=== PATIENT | male | born 1940 | race Caucasian/White ===

== ENCOUNTER 2018-03-16 22:53 | Observation (INO) | payer MEDICARE, OTHER ==
[2018-03-16 22:55] VITALS: BMI 29.8
[2018-03-16] MEDS ORDERED: DiphenhydrAMINE 50 mg/ml Inj IVP STA (23:51)
--- NOTE | 2018-03-17 00:04 | ED PDOC ---
Arrival/HPI <Gustavo Sears - Last Filed: 03/17/18 01:36> - General Historian: Patient <Bertram Brown - Last Filed: 03/17/18 02:31> - General Chief Complaint: Weakness/Neurological Deficit Time Seen by Provider: 03/16/18 23:24 - History of Present Illness Narrative History of Present Illness (Text): Patient is a 77 year old male with a past medical history of CAD s/p 5 stents ( 2 recent stents last week), hypertension, diabetes, and BPH who presents to the Emergency department for evaluation and treatment of a syncopal episode. As per family at bedside the patient experienced LOC while in the bathroom. Family was able to prevent trauma to the head. It is important to note patient did not consume regular PO intake today as his blood glucose was reportedly elevated. Also admits to diffuse pruritic rash. Denies fever, chills, chest pain, shortness of breath, abdominal pain, nausea, vomitting, diarrhea, constipation, and urinary symptoms. 03/17/18 00:09 (Bertram Brown) Past Medical History - Provider Review Nursing Documentation Reviewed: Yes - Travel History Have you recently traveled outside [place] w/in the past 3 mons?: No - Infectious Disease Hx of Infectious Diseases: None - Tetanus Immunization Tetanus Immunization: Unknown - Cardiac Hx Hypertension: Yes - Pulmonary Hx Respiratory Disorders: No - Neurological Hx Neurological Disorder: No - HEENT Hx HEENT Disorder: Yes Hx Cataracts: Yes (leanna sx) - Renal Hx Kidney Stones: Yes - Endocrine/Metabolic Hx Diabetes Mellitus Type 2: Yes - Hematological/Oncological Hx Blood Disorders: No - Integumentary Hx Dermatological Disorder: No - Musculoskeletal/Rheumatological Hx Arthritis: Yes - Gastrointestinal Hx Gastroesophageal Reflux: Yes - Genitourinary/Gynecological Hx Prostate Problems: Yes - Psychiatric Hx Depression: No Hx Emotional Abuse: No Hx Physical Abuse: No Hx Substance Use: No - Surgical History Hx Cardiac Catheterization: Yes Hx Coronary Stent: Yes (x3) - Anesthesia Hx Anesthesia Reactions: No - Suicidal Assessment Feels Threatened In Home Enviroment: No <Bertram Brown - Last Filed: 03/17/18 02:31> Family/Social History - Physician Review Nursing Documentation Reviewed: Yes Family/Social History: Unknown Family HX Smoking Status: Former Smoker Hx Alcohol Use: No Hx Substance Use: No Hx Substance Use Treatment: No <Bertram Brown - Last Filed: 03/17/18 02:31> Allergies/Home Meds <Gustavo Sears - Last Filed: 03/17/18 01:36> <Bertram Brown - Last Filed: 03/17/18 02:31> Allergies/Adverse Reactions: Allergies No Known Allergies Allergy (Verified 02/21/16 12:16) Home Medications: Home Meds Medication Instructions Recorded Confirmed Metoprolol Succinate 25 mg PO DAILY 01/06/14 03/16/18 Gabapentin [Neurontin] 300 mg PO BID 02/13/16 03/16/18 Mirtazapine [Remeron] 15 mg PO HS 02/13/16 03/16/18 Linaclotide [Linzess] 145 mcg PO DAILY 09/20/16 03/16/18 Losartan Potassium [Losartan 25 mg PO DAILY 03/16/18 03/16/18 Potassium] MetFORMIN ER [Glucophage XR] 750 mg PO DAILY 03/16/18 03/16/18 Saxagliptin HCl [Onglyza] 5 mg PO DAILY 03/16/18 03/16/18 Silodosin [Rapaflo] 8 mg PO DAILY 03/16/18 03/16/18 Review of Systems - Physician Review All systems were reviewed & negative as marked: Yes - Review of Systems Constitutional: Normal Eyes: Normal ENT: Normal Respiratory: Normal Cardiovascular: Normal Gastrointestinal: Normal Genitourinary Male: Normal Musculoskeletal: Normal Skin: Rash Neurological: Other (LOC) Endocrine: Normal Hemo/Lymphatic: Normal Psychiatric: Normal <Bertram Brown - Last Filed: 03/17/18 02:31> Physical Exam Vital Signs Reviewed: Yes Temperature: Afebrile Blood Pressure: Normal Pulse: Regular Respiratory Rate: Normal Appearance: Positive for: Well-Appearing, Non-Toxic, Comfortable Pain Distress: None Mental Status: Positive for: Alert and Oriented X 3 - Systems Exam Head: Present: Atraumatic, Normocephalic Pupils: Present: PERRL Extroacular Muscles: Present: EOMI Conjunctiva: Present: Normal Mouth: Present: Moist Mucous Membranes Nose (External): Present: Atraumatic Respiratory/Chest: Present: Clear to Auscultation, Good Air Exchange. No: Respiratory Distress, Accessory Muscle Use Cardiovascular: Present: Regular Rate and Rhythm, Normal S1, S2 Abdomen: Present: Normal Bowel Sounds. No: Tenderness, Distention, Peritoneal Signs, Rebound, Guarding Upper Extremity: Present: Erythema Lower Extremity: Present: Erythema Neurological: Present: GCS=15, CN II-XII Intact, Speech Normal, Motor Func Grossly Intact, Normal Sensory Function Skin: Present: Warm, Dry, Rashes, Erythematous. No: Normal Color, Diaphoretic Psychiatric: Present: Alert, Oriented x 3, Normal Insight, Normal Concentration , Normal Affect, Normal Mood <Bertram Brown - Last Filed: 03/17/18 02:31> Vital Signs Temp Pulse Resp BP Pulse Ox 03/17/18 01:39 98 F 81 18 139/76 95 03/16/18 23:13 97.9 F 84 18 131/80 96 Medical Decision Making <Gustavo Sears - Last Filed: 03/17/18 01:36> - Lab Interpretations I have reviewed the lab results: Yes - EKG Interpretation Interpreted by ED Physician: Yes Type: 12 lead EKG <Bertram Brown - Last Filed: 03/17/18 02:31> ED Course and Treatment: 03/17/18 01:35 Dima Holguin is a 77 year old male who presents to the emergency department for further evaluation s/p a syncopal episode. In agreement with resident note which contains more details about the patient. Patient was seen and evaluated with resident. Came up with plan and treatment together. (Gustavo Sears) Patient is a 77 year old male with a past medical history of CAD s/p 5 stents ( 2 recent stents last week), hypertension, diabetes, and BPH who presents to the Emergency department for evaluation and treatment of a syncopal episode. Syncope Rash Hx of CAD HX of hypertension Hx of diabetes HX of BPH - CBC, CMP - EKG NSR HR 87 bpm,, Qtc 433 - cardiac iso - benadryl and solumedrol - cxr - head without contrast 03/17/18 00:13 (Bertram Brown) - Lab Interpretations Lab Results: 03/16/18 23:53 03/16/18 23:53 Lab Results 03/17/18 01:40: Urine Color Light yellow, Urine Appearance Clear, Urine pH 6.0, Ur Specific [place] 1.015, Urine Protein Negative, Urine Glucose (UA) Negative, Urine Ketones Negative, Urine Blood Negative, Urine Nitrate Negative, Urine Bilirubin Negative, Urine Urobilinogen 0.2, Ur Leukocyte Esterase Negative 03/16/18 23:53: Sodium 129 L, Potassium 4.2, Chloride 100, Carbon Dioxide 19 L, Anion Gap 15, BUN 17, Creatinine 1.2, Est GFR ( Amer) > 60, Est GFR (Non- Af Amer) 58, Random Glucose 106, Calcium 9.2, Magnesium 1.3 L, Total Bilirubin 1.3, AST 26, ALT 28, Alkaline Phosphatase 67, Lactate Dehydrogenase 381, Total Creatine Kinase 35, Troponin I < 0.01 D, Total Protein 6.7, Albumin 3.7, Globulin 3.0, Albumin/Globulin Ratio 1.2 03/16/18 23:53: PT 13.1 H, INR 1.15 H, APTT 32.7 03/16/18 23:53: WBC 6.6 D, RBC 3.45 L, Hgb 10.5 L, Hct 30.6 L, MCV 88.7, MCH 30.4, MCHC 34.3, RDW 16.5 H, Plt Count 126, Gran % 78.3 H, Lymph % (Auto) 15.7 L , [place] % (Auto) 5.4, Eos % (Auto) 0.6 L, Baso % (Auto) 0.0, Gran # 5.19, Lymph # (Auto) 1.0 L, [place] # (Auto) 0.4, Eos # (Auto) 0.0, Baso # (Auto) 0.00 - RAD Interpretation Radiology Orders: 03/16/18 23:50 CHEST PORTABLE [RAD] Stat 03/16/18 23:51 HEAD W/O CONTRAST [CT] Stat - EKG Interpretation EKG Interpretation (Text): - EKG NSR HR 87 bpm,, Qtc 433 (Bertram Brown) - Medication Orders Current Medication Orders: Discontinued Medications Diphenhydramine HCl (Benadryl) 50 mg IVP STAT STA Stop: 03/16/18 23:52 Last Admin: 03/16/18 23:59 Dose: 50 mg IVP Administration Document 03/16/18 23:59 OLIVERIO (Rec: 03/16/18 23:59 OLIVERIO [id number]) Charges for Administration # of IVP Administrations 1 Magnesium 2 gm/50 ml NS (Magnesium Sulfate 2 Gm/50 Ml Ns) 2 gm in 50 mls @ 102 mls/hr IVPB ONCE ONE Stop: 03/17/18 02:21 Last Admin: 03/17/18 02:18 Dose: 102 mls/hr eMAR Start Stop Document 03/17/18 02:18 LA (Rec: 03/17/18 02:19 LA [id number]) Intravenous Solution Start Date 03/17/18 Start Time 02:18 End Date 03/17/18 End time 02:48 Total Infusion Time 30 Methylprednisolone (Solu-Medrol) 125 mg IVP STAT STA Stop: 03/16/18 23:52 Last Admin: 03/16/18 23:59 Dose: 125 mg IVP Administration Document 03/16/18 23:59 LA (Rec: 03/16/18 23:59 LA [id number]) Charges for Administration # of IVP Administrations 1 - Scribe Statement The provider has reviewed the documentation as recorded by the Scribe <Gustavo Sears - Last Filed: 03/17/18 01:36> <Bertram Brown - Last Filed: 03/17/18 02:31> - Scribe Statement Jeanie Law Provider Scribe Attestation: All medical record entries made by the Scribe were at my direction and personally dictated by me. I have reviewed the chart and agree that the record accurately reflects my personal performance of the history, physical exam, medical decision making, and the department course for this patient. I have also personally directed, reviewed, and agree with the discharge instructions and disposition. (Gustavo Sears) Disposition/Present on Arrival <Gustavo Sears - Last Filed: 03/17/18 01:36> - Present on Arrival History of DVT/PE: No History of Uncontrolled Diabetes: No Urinary Catheter: No History of Decub. Ulcer: No History Surgical Site Infection Following: None <Bertram Brown - Last Filed: 03/17/18 02:31> - Disposition Forms: [employer] (German)
[2018-03-17 00:13] LABS: EOS % 0.6 % (1.5-5.0); GRAN # 5.19 (1.4-6.5); GRAN % 78.3 % (50.0-68.0); HEMOGLOBIN 10.5 g/dL (14.0-18.0); LYMPH % 15.7 % (22.0-35.0); MEAN CELL VOLUME 88.7 fl (80.0-105.0); MEAN CORPUSCULAR HEMOGLOBIN 30.4 pg (25.0-35.0); MEAN CORPUSCULAR HGB CONC 34.3 g/dl (31.0-37.0); MONO # 0.4 (0.1-0.6); MONO % 5.4 % (1.0-6.0); PLATELET COUNT 126 10^3/uL (120.0-450.0); RBC 3.45 10^6/uL (3.5-6.1); RED CELL DISTRIBUTION WIDTH 16.5 % (11.5-14.5); WHITE BLOOD COUNT 6.6 10^3/ul (4.5-11.0)
[2018-03-17 00:14] LABS: ALB/GLOB RATIO 1.2 (1.1-1.8); ALBUMIN 3.7 g/dL (3.0-4.8); ALT/SGPT 28 U/L (7-56); AST/SGOT 26 U/L (17-59); BLOOD UREA NITROGEN 17 mg/dL (7-21); CALCIUM 9.2 mg/dL (8.4-10.5); GFR AFRICAN-AMERICAN > 60; GFR NON-AFRICAN AMERICAN 58
[2018-03-17 00:23] LABS: TROPONIN I < 0.01 ng/mL
[2018-03-17 00:25] LABS: INR 1.15 (0.93-1.08); PARTIAL THROMBOPLASTIN TIME 32.7 Seconds (25.1-36.5); PROTHROMBIN TIME 13.1 SECONDS (9.4-12.5)
[2018-03-17] MEDS ORDERED: Magnesium 2 gm/50 ml NS 2 GM/50 ML BAG IVPB ONE (01:52)
[2018-03-17 02:05] LABS: URINE BILIRUBIN NEGATIVE (NEGATIVE); URINE BLOOD NEGATIVE (NEGATIVE); URINE GLUCOSE (UA) NEGATIVE (NEGATIVE); URINE LEUKOCYTE ESTERASE NEGATIVE Leu/uL (NEGATIVE); URINE PROTEIN NEGATIVE mg/dL (<30 mg/dL); URINE UROBILINOGEN 0.2 E.U./dL (<1 E.U./dL)
--- NOTE | 2018-03-17 02:07 | CT ---
EXAM: CT Head Without Intravenous Contrast CLINICAL HISTORY: 77 years old, male; Signs and symptoms; Syncope and collapse TECHNIQUE: Axial computed tomography images of the head/brain without intravenous contrast. All CT scans at this facility use one or more dose reduction techniques, viz.: automated exposure control; ma/kV adjustment per patient size (including targeted exams where dose is matched to indication; i.e. head); or iterative reconstruction technique. Coronal and sagittal reformatted images were created and reviewed. COMPARISON: MR - BRAIN WITHOUT CONTRAST 2016-11-02 13:50 FINDINGS: Brain: Moderate atrophy. No intracranial hemorrhage. No mass. Several scattered foci of decreased attenuation within periventricular/subcortical white matter. No definite edema. Ventricles: No hydrocephalus. Bones/joints: No acute fracture. Soft tissues: Unremarkable. Vasculature: Mild atherosclerotic disease of intracranial arteries. Sinuses: Scattered minimal mucosal thickening. Mastoid air cells: No mastoid effusion. Orbits: Unremarkable as visualized. IMPRESSION: 1. Nonspecific white matter changes. Acute infarction may be CT occult within first 24 hours. If a focal deficit persists, consider followup CT or MRI for further evaluation. 2. Incidental/non-acute findings are described above.
[2018-03-17 02:14] LABS: URINE APPEARANCE CLEAR (CLEAR); URINE COLOR LIGHT YELLOW (YELLOW)
--- NOTE | 2018-03-17 02:28 | CP.PCM.HP ---
Addendum entered and electronically signed by Bertram Brown DO 03/17/18 04:50: Addition to Subjective: 12 points ROS negative except as indicated in HPI Addition to Assessment and Plan: - ECHO - troponin first set less than 0.01; x 3 q6h - TSH Addendum entered and electronically signed by Bertram Brown DO 03/17/18 03:22: Correction in HPI: Stents were placed in 2016 Original Note: <Bertram Brown - Last Filed: 03/17/18 02:41> History of Present Illness - History of Present Illness History of Present Illness: Subjective: CC: Fainting HPI: Patient is a 77 year old male with a past medical history of CAD s/p 5 stents ( 2 recent stents last week), hypertension, diabetes, IBS, and BPH who presents to the Emergency department for evaluation and treatment of a syncopal episode. As per family, who is at bedside, the patient experienced LOC while in the bathroom. Family was able to prevent trauma to the head. It is important to note patient did not consume regular PO intake today as his blood glucose was reportedly elevated in the morning. Also admits to diffuse pruritic rash which began yesterday with no specific provoking event. Denies headache, dizziness, fever, chills, chest pain, palpitations, shortness of breath, abdominal pain, nausea, vomiting, diarrhea, constipation, and urinary symptoms. PMH: CAD s/p stents, hypertension, diabetes, BPH, IBS PSHx: bialateral inguinal hernia repair Social History: Denies ETOH use, quit smoking 7 years ago; denies illicit drug use Family Hx: noncontributory PMD: Dr. Diaz Cartridge Belt Puncher: Dr. Minaya Physical Examination: - Constitutional Appears: Well, Non-toxic, No Acute Distress - Head Exam Head Exam: ATRAUMATIC, NORMAL INSPECTION - Eye Exam Eye Exam: EOMI, Normal appearance - ENT Exam ENT Exam: Mucous Membranes Moist - Respiratory Exam Respiratory Exam: Clear to Auscultation Bilateral, NORMAL BREATHING PATTERN. absent: Accessory Muscle Use - Cardiovascular Exam Cardiovascular Exam: REGULAR RHYTHM, +S1, +S2 - GI/Abdominal Exam GI & Abdominal Exam: Normal Bowel Sounds. absent: Tenderness - Extremities Exam Extremities exam: Negative for: normal inspection - Neurological Exam Neurological exam: Alert, CN II-XII Intact, Oriented x3 - Psychiatric Exam Psychiatric exam: Normal Affect, Normal Mood - Skin Skin Exam: Intact, Rash, Warm Assessment and Plan: Patient is a 77 year old male with a past medical history of CAD s/p 5 stents ( 2 recent stents last week), hypertension, diabetes, and BPH who presents to the Emergency department for evaluation and treatment of a syncopal episode. Syncope - CT head- Moderate atrophy. No intracranial hemorrhage. No mass. Several scattered foci of decreased attenuation within periventricular/subcortical white matter - Chest X-ray- no active disease - EKG NSR HR 87 bpm,, Qtc 433 - neurology consulted- appreciate recommendations - cardiology consulted- appreciate recommendations - high risk fall precautions Rash - patient was given Benadryl and solumedrol in Emergency department - benadryl 25mg q6 prn pruritis - prednisone 20 mg daily Hyponatremia - NA 129- at baseline - no acute need for NS IVF Hypomagnesemia - repleted - mag level ordered for AM Hx of CAD - continue home aspirin, statin, metoprolol - lipid profile ordered and pending HX of Hypertension - blood pressures reviewed, trended, and appreciated- within normal limts - continue home losartan Hx of diabetes - heart healthy diet- carb consistent - ACHS blood glucose checks - Insulin sliding scale - hold home gliptin and metformin - A1c ordered and pending HX of BPH - continue home rapaflo Patient case discussed with and plan approved by attending physician, Dr. Echeverria. Present on Admission - Present on Admission Any Indicators Present on Admission: No Past Patient History - Infectious Disease Hx of Infectious Diseases: None - Tetanus Immunizations Tetanus Immunization: Unknown - Past Social History Smoking Status: Former Smoker - CARDIAC Hx Hypertension: Yes - PULMONARY Hx Respiratory Disorders: No - NEUROLOGICAL Hx Neurological Disorder: No - HEENT Hx HEENT Problems: Yes Hx Cataracts: Yes (leanna sx) - RENAL Hx Kidney Stones: Yes - ENDOCRINE/METABOLIC Hx Diabetes Mellitus Type 2: Yes - HEMATOLOGICAL/ONCOLOGICAL Hx Blood Disorders: No - INTEGUMENTARY Hx Dermatological Problems: No - MUSCULOSKELETAL/RHEUMATOLOGICAL Hx Arthritis: Yes - GASTROINTESTINAL Hx Gastroesophageal Reflux: Yes - GENITOURINARY/GYNECOLOGICAL Hx Prostate Problems: Yes - PSYCHIATRIC Hx Depression: No Hx Emotional Abuse: No Hx Physical Abuse: No Hx Substance Use: No - SURGICAL HISTORY Hx Cardiac Catheterization: Yes Hx Coronary Stent: Yes (x3) - ANESTHESIA Hx Anesthesia Reactions: No Meds Allergies/Adverse Reactions: Allergies Allergy/AdvReac Type Severity Reaction Status Date / Time No Known Allergies Allergy Verified 02/21/16 12:16 Physical Exam - Constitutional Appears: Well, Non-toxic, No Acute Distress - Head Exam Head Exam: ATRAUMATIC, NORMAL INSPECTION - Eye Exam Eye Exam: EOMI, Normal appearance - ENT Exam ENT Exam: Mucous Membranes Moist - Respiratory Exam Respiratory Exam: Clear to Auscultation Bilateral, NORMAL BREATHING PATTERN. absent: Accessory Muscle Use - Cardiovascular Exam Cardiovascular Exam: REGULAR RHYTHM, +S1, +S2 - GI/Abdominal Exam GI & Abdominal Exam: Normal Bowel Sounds. absent: Tenderness - Extremities Exam Extremities exam: Negative for: normal inspection - Neurological Exam Neurological exam: Alert, CN II-XII Intact, Oriented x3 - Psychiatric Exam Psychiatric exam: Normal Affect, Normal Mood - Skin Skin Exam: Intact, Rash, Warm Results - Vital Signs Recent Vital Signs: Last Vital Signs Temp 98 F 03/17/18 01:39 Pulse 81 03/17/18 01:39 Resp 18 03/17/18 01:39 BP 139/76 03/17/18 01:39 Pulse Ox 95 03/17/18 01:39 - Labs Result Diagrams: 03/16/18 23:53 03/16/18 23:53 Labs: Laboratory Results - last 24 hr 03/16/18 03/16/18 03/16/18 23:53 23:53 23:53 WBC 6.6 D RBC 3.45 L Hgb 10.5 L Hct 30.6 L MCV 88.7 MCH 30.4 MCHC 34.3 RDW 16.5 H Plt Count 126 Gran % 78.3 H Lymph % (Auto) 15.7 L [place] % (Auto) 5.4 Eos % (Auto) 0.6 L Baso % (Auto) 0.0 Gran # 5.19 Lymph # (Auto) 1.0 L [place] # (Auto) 0.4 Eos # (Auto) 0.0 Baso # (Auto) 0.00 PT 13.1 H INR 1.15 H APTT 32.7 Sodium 129 L Potassium 4.2 Chloride 100 Carbon Dioxide 19 L Anion Gap 15 BUN 17 Creatinine 1.2 Est GFR ( Amer) > 60 Est GFR (Non-Af Amer) 58 Random Glucose 106 Calcium 9.2 Magnesium 1.3 L Total Bilirubin 1.3 AST 26 ALT 28 Alkaline Phosphatase 67 Lactate Dehydrogenase 381 Total Creatine Kinase 35 Troponin I < 0.01 D Total Protein 6.7 Albumin 3.7 Globulin 3.0 Albumin/Globulin Ratio 1.2 <Imelda Echeverria - Last Filed: 03/17/18 05:19> Results - Vital Signs Recent Vital Signs: Last Vital Signs Temp 98 F 03/17/18 01:39 Pulse 89 03/17/18 03:00 Resp 20 03/17/18 03:29 BP 149/80 03/17/18 03:00 Pulse Ox 95 03/17/18 03:00 - Labs Result Diagrams: 03/16/18 23:53 03/16/18 23:53 Attending/Attestation - Attestation I have personally seen and examined this patient.: Yes I have fully participated in the care of the patient.: Yes I have reviewed all pertinent clinical information: Yes Notes (Text): 03/17/18 05:14 Addendum to Diagnosis: Anemia:Currently H/H is at baseline.Iron and TIBC ordered.
[2018-03-17 07:42] LABS: GRAN % 88.3 % (50.0-68.0); HEMOGLOBIN 10.3 g/dL (14.0-18.0); LYMPH # 0.5 (1.2-3.4); LYMPH % 10.2 % (22.0-35.0); MEAN CELL VOLUME 88.4 fl (80.0-105.0); MEAN CORPUSCULAR HEMOGLOBIN 29.9 pg (25.0-35.0); MEAN CORPUSCULAR HGB CONC 33.8 g/dl (31.0-37.0); MONO # 0.1 (0.1-0.6); MONO % 1.5 % (1.0-6.0); PLATELET COUNT 145 10^3/uL (120.0-450.0); RBC 3.45 10^6/uL (3.5-6.1); RED CELL DISTRIBUTION WIDTH 16.4 % (11.5-14.5); WHITE BLOOD COUNT 5.2 10^3/ul (4.5-11.0)
[2018-03-17 07:50] LABS: HDL CHOLESTEROL 40 mg/dL (29-60)
[2018-03-17 08:01] LABS: TROPONIN I < 0.01 ng/mL
[2018-03-17 08:08] LABS: IRON 25 ug/dL (45-180)
[2018-03-17 08:09] LABS: ALB/GLOB RATIO 1.3 (1.1-1.8); ALBUMIN 3.8 g/dL (3.0-4.8); ALT/SGPT 29 U/L (7-56); AST/SGOT 22 U/L (17-59); BLOOD UREA NITROGEN 17 mg/dL (7-21); CALCIUM 9.6 mg/dL (8.4-10.5); GFR AFRICAN-AMERICAN > 60; GFR NON-AFRICAN AMERICAN > 60; LDL CHOLESTEROL < 30 mg/dL (0-129)
[2018-03-17] MEDS: Pantoprazole 40 mg EC Tab PO SCH (08:12)
[2018-03-17] MEDS: Insulin Lispro (humaLOG) MEDIUM Coverage SC SCH ×4 (08:13→21:51)
[2018-03-17 08:17] LABS: % IRON SATURATION 10 % (20-55); TOTAL IRON BINDING CAPACITY 257 ug/dL (261-462)
--- NOTE | 2018-03-17 08:20 | RAD ---
HISTORY: syncope COMPARISON: 02/26/2016 FINDINGS: LUNGS: No active pulmonary disease. PLEURA: No significant pleural effusion identified, no pneumothorax apparent. CARDIOVASCULAR: Normal. OSSEOUS STRUCTURES: No significant abnormalities. VISUALIZED UPPER ABDOMEN: Normal. OTHER FINDINGS: None. IMPRESSION: No active disease.
[2018-03-17] MEDS: Metoprolol Succinate 25 mg XL Tab PO SCH (09:51)
[2018-03-17] MEDS: SILODOSIN 8 MG PO SCH (09:52)
[2018-03-17] MEDS ORDERED: Metoprolol Succinate 25 mg XL Tab PO SCH (10:00)
--- NOTE | 2018-03-17 10:31 | CP.PCM.CON ---
History of Present Illness - History of Present Illness History of Present Illness: Lying in bed, awake, at bedside,denies chest pain,denies shortness of breath Reason for consultation: Cardiac evaluation for syncopal episode, history of coronary artery disease post 5 stents,history of STEMI, hypertension,diabetes, BPH, PAD, Brief history of present illness: A 77 year old male,who was brought to the ER due to syncopal episode while in the bathroom. He lost consciousness while in the bathroom however was able to hold him and prevented trauma. claimed that he did have appetite for the past few days and refuse to eat solid food except soup. He also complaints of diffuse pruritic rash. He was given steroids in the ER. History of coronary artery disease post 5 stents, STEMI, hypertension, diabetes, BPH.arthritis, GERD, bilateral cataract surgery, kidney stones, former smoker. Seen and examined by me and Dr. Gutierrez Review of Systems - Constitutional Constitutional: As Per HPI - Cardiovascular Cardiovascular: As Per HPI - Respiratory Respiratory: As Per HPI - Gastrointestinal Additional comments: no appetite - Genitourinary Additional comments: denies any problems - Neurological Additional comments: loss of conciousness Past Patient History - Infectious Disease Hx of Infectious Diseases: None - Tetanus Immunizations Tetanus Immunization: Unknown - Past Social History Smoking Status: Former Smoker - CARDIAC Hx Hypertension: Yes - PULMONARY Hx Respiratory Disorders: No - NEUROLOGICAL Hx Neurological Disorder: No - HEENT Hx HEENT Problems: Yes Hx Cataracts: Yes (leanna sx) - RENAL Hx Kidney Stones: Yes - ENDOCRINE/METABOLIC Hx Diabetes Mellitus Type 2: Yes - HEMATOLOGICAL/ONCOLOGICAL Hx Blood Disorders: No - INTEGUMENTARY Hx Dermatological Problems: No - MUSCULOSKELETAL/RHEUMATOLOGICAL Hx Arthritis: Yes Hx Falls: No - GASTROINTESTINAL Hx Gastroesophageal Reflux: Yes - GENITOURINARY/GYNECOLOGICAL Hx Prostate Problems: Yes - PSYCHIATRIC Hx Depression: No Hx Emotional Abuse: No Hx Physical Abuse: No - SURGICAL HISTORY Hx Surgeries: Yes Hx Cardiac Catheterization: Yes Hx Coronary Stent: Yes (x3) - ANESTHESIA Hx Anesthesia Reactions: No Meds Allergies/Adverse Reactions: Allergies Allergy/AdvReac Type Severity Reaction Status Date / Time No Known Allergies Allergy Verified 02/21/16 12:16 - Medications Medications: Current Medications Aspirin (Ecotrin) 81 mg PO DAILY [facility] Last Admin: 03/17/18 09:51 Dose: 81 mg Atorvastatin Calcium (Lipitor) 40 mg PO DIN [facility] Diphenhydramine HCl (Benadryl) 25 mg PO Q6 PRN PRN Reason: pruritis Insulin Human Lispro (Humalog Med) 0 units SC ACHS [facility] PRN Reason: Protocol Last Admin: 03/17/18 08:13 Dose: 1 units Losartan Potassium (Cozaar) 25 mg PO DAILY [facility] Last Admin: 03/17/18 09:51 Dose: 25 mg Metoprolol Succinate (Toprol Xl) 25 mg PO DAILY [facility] Last Admin: 03/17/18 09:51 Dose: 25 mg Home Med - Silodosin ([Rapaflo] 8 Mg) 8 mg PO DAILY [facility] Last Admin: 03/17/18 09:52 Dose: Not Given Pantoprazole Sodium (Protonix Ec Tab) 40 mg PO 0600 [facility] Last Admin: 03/17/18 08:12 Dose: 40 mg Prednisone (Prednisone Tab) 20 mg PO DAILY [facility] Last Admin: 03/17/18 09:52 Dose: 20 mg Ticagrelor (Brilinta) 90 mg PO BID [facility] Last Admin: 03/17/18 09:51 Dose: 90 mg Physical Exam - Constitutional Appears: No Acute Distress - Head Exam Head Exam: NORMOCEPHALIC - Eye Exam Eye Exam: Normal appearance - ENT Exam ENT Exam: Mucous Membranes Dry - Respiratory Exam Respiratory Exam: Clear to Auscultation Bilateral, NORMAL BREATHING PATTERN - Cardiovascular Exam Cardiovascular Exam: +S1, +S2 - GI/Abdominal Exam GI & Abdominal Exam: Normal Bowel Sounds, Soft - Neurological Exam Neurological exam: Alert, Oriented x3 - Psychiatric Exam Psychiatric exam: Normal Affect, Normal Mood - Skin Skin Exam: Normal Color, Warm Results - Vital Signs Recent Vital Signs: Last Vital Signs Temp 97.9 F 03/17/18 06:00 Pulse 81 03/17/18 09:51 Resp 18 03/17/18 06:00 BP 110/64 03/17/18 09:51 Pulse Ox 95 03/17/18 03:00 - Labs Result Diagrams: 03/17/18 06:30 03/17/18 06:30 Labs: Laboratory Results - last 24 hr 03/17/18 03/17/18 03/17/18 06:30 06:30 06:30 WBC 5.2 D RBC 3.45 L Hgb 10.3 L Hct 30.5 L MCV 88.4 MCH 29.9 MCHC 33.8 RDW 16.4 H Plt Count 145 Gran % 88.3 H Lymph % (Auto) 10.2 L Clarke % (Auto) 1.5 Eos % (Auto) 0.0 L Baso % (Auto) 0.0 Gran # 4.60 Lymph # (Auto) 0.5 L Clarke # (Auto) 0.1 Eos # (Auto) 0.0 Baso # (Auto) 0.00 Sodium Potassium Chloride Carbon Dioxide Anion Gap BUN Creatinine Est GFR ( Amer) Est GFR (Non-Af Amer) POC Glucose (mg/dL) Random Glucose Calcium Magnesium Iron 25 L TIBC 257 L % Saturation 10 L Total Bilirubin AST ALT Alkaline Phosphatase Troponin I Total Protein Albumin Globulin Albumin/Globulin Ratio Triglycerides 43 Cholesterol 79 L LDL Cholesterol Direct < 30 HDL Cholesterol 40 TSH 3rd Generation 03/17/18 03/17/18 03/17/18 06:30 06:30 07:09 WBC RBC Hgb Hct MCV MCH MCHC RDW Plt Count Gran % Lymph % (Auto) Clarke % (Auto) Eos % (Auto) Baso % (Auto) Gran # Lymph # (Auto) Clarke # (Auto) Eos # (Auto) Baso # (Auto) Sodium 134 Potassium 4.4 Chloride 103 Carbon Dioxide 19 L Anion Gap 16 BUN 17 Creatinine 1.1 Est GFR ( Amer) > 60 Est GFR (Non-Af Amer) > 60 POC Glucose (mg/dL) 181 H Random Glucose 180 H Calcium 9.6 Magnesium 2.0 Iron TIBC % Saturation Total Bilirubin 1.0 AST 22 ALT 29 Alkaline Phosphatase 69 Troponin I < 0.01 Total Protein 6.9 Albumin 3.8 Globulin 3.1 Albumin/Globulin Ratio 1.3 Triglycerides Cholesterol LDL Cholesterol Direct HDL Cholesterol TSH 3rd Generation 0.15 L Assessment & Plan - Assessment and Plan (Free Text) Assessment: A 77 year old male,who was brought to the ER due to syncopal episode while in the bathroom. He lost consciousness while in the bathroom however was able to hold him and prevented trauma. claimed that he did have appetite for the past few days and refuse to eat solid food except soup. He also complaints of diffuse pruritic rash. He was given steroids and benadryl in the ER with resolution. History of coronary artery disease post 5 stents, hypertension, diabetes, BPH.arthritis, GERD, bilateral cataract surgery, kidney stones, former smoker.Chest X ray done in ER- normal,no infiltrates, CT of head done in ER, no bleeding, moderate atrophy,several scattered foci of decreased attenuation within periventricular /subcortal white matter. Neurology on consult. Review of previous cardiac work up: 09/20/16-Stress test-LVEF 67%, small apical defect due to previous SC 02/24/16- ECHO- LVEF 65%, Trace AR/MR, mild NC/TR, RSVP 37mmhg 02/28/16-Staged PTCA of mid to distal RCA moderate disease of LAD-60%, patent previous PCI site 02/11/16-CODE STEMI- PCI of Circumflex Multiple PCI in [facility] prior to this procedures. Plan: Syncopal episode possible TIA Carotid studies ordered ECHO to check LV function Possible dehydration due to poor oral intake for the past few days NSS at 100 cc/hr Possible orthostatic hypotension Orthostatic vital signs Continue current medications Continue current treatment Encouraged oral intake Will follow up Plan and treatment discussed with Dr. Gutierrez Thank you Dr. Gagnon for the opportunity to take care of Mr. Dima Holguin. - Date & Time Date: 03/17/18 Time: 06:55
--- NOTE | 2018-03-17 10:55 | CARD ---
APPROVED REPORT EKG Measurement Heart [id number] ND [id number] <Conclusion> Normal sinus rhythm NSSTW changes. Improved repolarization c/w ECG 02/28/16
[2018-03-17] MEDS: Sodium Chloride 0.9% 1,000 ML IV SCH ×2 (12:12→22:00)
[2018-03-18] MEDS: Pantoprazole 40 mg EC Tab PO SCH (05:16)
[2018-03-18 05:48] VITALS: PULSE 72; O2SAT 94
[2018-03-18] MEDS: Insulin Lispro (humaLOG) MEDIUM Coverage SC SCH ×2 (07:35→11:49)
[2018-03-18] MEDS: Sodium Chloride 0.9% 1,000 ML IV SCH (07:57)
[2018-03-18 08:04] LABS: EOS % 0.1 % (1.5-5.0); GRAN # 6.11 (1.4-6.5); GRAN % 74.8 % (50.0-68.0); HEMOGLOBIN 9.3 g/dL (14.0-18.0); LYMPH # 1.3 (1.2-3.4); LYMPH % 15.6 % (22.0-35.0); MEAN CELL VOLUME 89.2 fl (80.0-105.0); MEAN CORPUSCULAR HEMOGLOBIN 30.4 pg (25.0-35.0); MEAN CORPUSCULAR HGB CONC 34.1 g/dl (31.0-37.0); MONO # 0.8 (0.1-0.6); MONO % 9.5 % (1.0-6.0); PLATELET COUNT 145 10^3/uL (120.0-450.0); RBC 3.06 10^6/uL (3.5-6.1); RED CELL DISTRIBUTION WIDTH 16.8 % (11.5-14.5); WHITE BLOOD COUNT 8.2 10^3/ul (4.5-11.0)
[2018-03-18 09:03] LABS: ALB/GLOB RATIO 1.1 (1.1-1.8); ALT/SGPT 23 U/L (7-56); AST/SGOT 14 U/L (17-59); BLOOD UREA NITROGEN 22 mg/dL (7-21); CALCIUM 9.6 mg/dL (8.4-10.5); GFR AFRICAN-AMERICAN > 60; GFR NON-AFRICAN AMERICAN > 60
[2018-03-18] MEDS: Metoprolol Succinate 25 mg XL Tab PO SCH (10:45)
[2018-03-18] MEDS: SILODOSIN 8 MG PO SCH (10:45)
[2018-03-18 12:09] VITALS: BP 132/68; RESP 21; TEMP 98.1
--- NOTE | 2018-03-18 12:54 | CP.PCM.CON ---
History of Present Illness - History of Present Illness History of Present Illness: Mr. Holguin is a 77-year-old man with a past medical history of HTN, DM, insomnia , who states that he was recently started on losartan, and has been having rashes and itching of his lower extremities and feeling dizzy/lightheaded. He was in the bathroom and began to feel weak, and suddenly collapsed as he was leaning on an object for support. He lost consciousness. His family was with him and when he woke up, he was not confused, but did not recall how he fell. He admits to having sleep paralysis and day time sleepiness. He has hypnagogic hallucinations. Review of Systems - Review of Systems All systems: reviewed and no additional remarkable complaints except Past Patient History - Infectious Disease Hx of Infectious Diseases: None - Tetanus Immunizations Tetanus Immunization: Unknown - Past Social History Smoking Status: Former Smoker - CARDIAC Hx Hypertension: Yes - PULMONARY Hx Respiratory Disorders: No - NEUROLOGICAL Hx Neurological Disorder: No - HEENT Hx HEENT Problems: Yes Hx Cataracts: Yes (leanna sx) - RENAL Hx Kidney Stones: Yes - ENDOCRINE/METABOLIC Hx Diabetes Mellitus Type 2: Yes - HEMATOLOGICAL/ONCOLOGICAL Hx Blood Disorders: No - INTEGUMENTARY Hx Dermatological Problems: No - MUSCULOSKELETAL/RHEUMATOLOGICAL Hx Arthritis: Yes - GASTROINTESTINAL Hx Gastroesophageal Reflux: Yes - GENITOURINARY/GYNECOLOGICAL Hx Prostate Problems: Yes - PSYCHIATRIC Hx Depression: No Hx Emotional Abuse: No Hx Physical Abuse: No - SURGICAL HISTORY Hx Surgeries: Yes Hx Cardiac Catheterization: Yes Hx Coronary Stent: Yes (x3) - ANESTHESIA Hx Anesthesia Reactions: No Meds Allergies/Adverse Reactions: Allergies Allergy/AdvReac Type Severity Reaction Status Date / Time No Known Allergies Allergy Verified 02/21/16 12:16 - Medications Medications: Current Medications Aspirin (Ecotrin) 81 mg PO DAILY [facility]S [facility] BEDS AT [facility] Last Admin: 03/18/18 10:46 Dose: 81 mg Atorvastatin Calcium (Lipitor) 40 mg PO DIN COUNTS [facility]CLUDE 234 BEDS AT [facility] Last Admin: 03/17/18 17:17 Dose: 40 mg Diphenhydramine HCl (Benadryl) 25 mg PO Q6 PRN PRN Reason: pruritis Docusate Sodium (Colace) 100 mg PO BID [facility] 234 BEDS AT [facility] Last Admin: 03/18/18 10:50 Dose: 100 mg Ferrous Sulfate (Feosol) 324 mg PO TID [facility]CLUDE 234 BEDS AT [facility] Last Admin: 03/18/18 10:45 Dose: 324 mg Sodium Chloride (Sodium Chloride 0.9%) 1,000 mls @ 100 mls/hr IV .Q10H COUNTS INCLUDE 234 BEDS AT THE [facility] Last Admin: 03/17/18 22:00 Dose: 100 mls/hr Insulin Human Lispro (Humalog Med) 0 units SC ACHS COUNTS [facility]CLUDE 234 BEDS AT [facility] PRN Reason: Protocol Last Admin: 03/18/18 11:49 Dose: Not Given Losartan Potassium (Cozaar) 25 mg PO DAILY [facility] 234 BEDS [facility] Last Admin: 03/18/18 10:45 Dose: Not Given Pantoprazole Sodium (Protonix Ec Tab) 40 mg PO 0600 [facility] 234 BEDS [facility] Last Admin: 03/18/18 05:16 Dose: 40 mg Prednisone (Prednisone Tab) 20 mg PO DAILY [facility]S [facility] Last Admin: 03/18/18 10:46 Dose: 20 mg Physical Exam - Neurological Exam Neurological exam: Alert, CN II-XII Intact, Normal Gait, Oriented x3, Reflexes Normal Results - Vital Signs Recent Vital Signs: Last Vital Signs Temp 98.1 F 03/18/18 12:00 Pulse 72 03/18/18 12:00 Resp 21 03/18/18 12:00 BP 132/68 03/18/18 12:00 Pulse Ox 94 L 03/18/18 05:47 - Labs Result Diagrams: 03/18/18 07:20 03/18/18 07:30 Labs: Laboratory Results - last 24 hr 03/17/18 03/17/18 03/17/18 06:30 11:00 16:50 WBC RBC Hgb Hct MCV MCH MCHC RDW Plt Count Gran % Lymph % (Auto) Storey % (Auto) Eos % (Auto) Baso % (Auto) Gran # Lymph # (Auto) Storey # (Auto) Eos # (Auto) Baso # (Auto) Sodium Potassium Chloride Carbon Dioxide Anion Gap BUN Creatinine Est GFR ( Amer) Est GFR (Non-Af Amer) POC Glucose (mg/dL) 158 H Random Glucose Hemoglobin A1c 6.0 Calcium Total Bilirubin AST ALT Alkaline Phosphatase Troponin I Total Protein Albumin Globulin Albumin/Globulin Ratio Free T4 1.13 03/17/18 03/17/18 03/18/18 16:55 21:10 07:20 WBC 8.2 D RBC 3.06 L Hgb 9.3 L Hct 27.3 L MCV 89.2 MCH 30.4 MCHC 34.1 RDW 16.8 H Plt Count 145 Gran % 74.8 H Lymph % (Auto) 15.6 L Storey % (Auto) 9.5 H Eos % (Auto) 0.1 L Baso % (Auto) 0.0 Gran # 6.11 Lymph # (Auto) 1.3 Storey # (Auto) 0.8 H Eos # (Auto) 0.0 Baso # (Auto) 0.00 Sodium Potassium Chloride Carbon Dioxide Anion Gap BUN Creatinine Est GFR ( Amer) Est GFR (Non-Af Amer) POC Glucose (mg/dL) 181 H Random Glucose Hemoglobin A1c Calcium Total Bilirubin AST ALT Alkaline Phosphatase Troponin I < 0.01 Total Protein Albumin Globulin Albumin/Globulin Ratio Free T4 03/18/18 03/18/18 03/18/18 07:26 07:30 11:35 WBC RBC Hgb Hct MCV MCH MCHC RDW Plt Count Gran % Lymph % (Auto) Storey % (Auto) Eos % (Auto) Baso % (Auto) Gran # Lymph # (Auto) Storey # (Auto) Eos # (Auto) Baso # (Auto) Sodium 143 Potassium 4.4 Chloride 112 H Carbon Dioxide 21 Anion Gap 15 BUN 22 H Creatinine 1.1 Est GFR ( Amer) > 60 Est GFR (Non-Af Amer) > 60 POC Glucose (mg/dL) 128 H 111 H Random Glucose 125 H Hemoglobin A1c Calcium 9.6 Total Bilirubin 0.5 AST 14 L D ALT 23 Alkaline Phosphatase 64 Troponin I Total Protein 5.9 Albumin 3.0 Globulin 2.9 Albumin/Globulin Ratio 1.1 Free T4 Assessment & Plan (1) Cataplexy and narcolepsy Assessment and Plan: The patient should undergo a sleep study for further investigation. This can be done as an outpatient. The syncopal episode is likely due to cataplexy. We can start modafinil. I would like to rule out vertebro-basilar insufficiency and/or seizure disorder as well. I recommend CTA of the head/neck and an EEG. Thank you. Status: Acute Priority: High
--- NOTE | 2018-03-18 13:03 | CP.PCM.PN ---
Subjective - Date & Time of Evaluation Date of Evaluation: 03/18/18 Time of Evaluation: 13:00 - Subjective Subjective: Jessica Bergman, PGY1, Medicine Progress Note for Dr Allen: Patient seen and examined at bedside. No acute events overnight. States that his dizziness is improved, but present. Denies fever, chills, nausea, vomiting, abdominal pain, pruritus, leg swelling. Objective - Vital Signs/Intake and Output Vital Signs (last 24 hours): Temp Pulse Resp BP Pulse Ox 98.1 F 72 21 132/68 94 L 03/18/18 12:00 03/18/18 12:00 03/18/18 12:00 03/18/18 12:00 03/18/18 05:47 Intake and Output: 03/18/18 03/18/18 06:59 18:59 Intake Total 1840 Balance 1840 - Medications Medications: Current Medications Aspirin (Ecotrin) 81 mg PO DAILY [facility] Last Admin: 03/18/18 10:46 Dose: 81 mg Atorvastatin Calcium (Lipitor) 40 mg PO DIN [facility] Last Admin: 03/17/18 17:17 Dose: 40 mg Diphenhydramine HCl (Benadryl) 25 mg PO Q6 PRN PRN Reason: pruritis Docusate Sodium (Colace) 100 mg PO BID [facility] Last Admin: 03/18/18 10:50 Dose: 100 mg Ferrous Sulfate (Feosol) 324 mg PO TID [facility] Last Admin: 03/18/18 10:45 Dose: 324 mg Sodium Chloride (Sodium Chloride 0.9%) 1,000 mls @ 100 mls/hr IV .Q10H [facility] Last Admin: 03/17/18 22:00 Dose: 100 mls/hr Insulin Human Lispro (Humalog Med) 0 units SC ACHS [facility] PRN Reason: Protocol Last Admin: 03/18/18 11:49 Dose: Not Given Pantoprazole Sodium (Protonix Ec Tab) 40 mg PO 0600 [facility] Last Admin: 03/18/18 05:16 Dose: 40 mg Prednisone (Prednisone Tab) 20 mg PO DAILY [facility] Last Admin: 03/18/18 10:46 Dose: 20 mg - Labs Labs: 03/18/18 07:20 03/18/18 07:30 PT 13.1 SECONDS (9.4-12.5) H 03/16/18 23:53 INR 1.15 (0.93-1.08) H 03/16/18 23:53 APTT 32.7 Seconds (25.1-36.5) 03/16/18 23:53 - Constitutional Appears: Non-toxic, No Acute Distress - Head Exam Head Exam: ATRAUMATIC, NORMOCEPHALIC - Eye Exam Eye Exam: EOMI, PERRL Pupil Exam: NORMAL ACCOMODATION, PERRL. absent: Fixed, Irregular, Miosis, Mydriatic, Unequal - ENT Exam ENT Exam: Mucous Membranes Moist - Neck Exam Neck Exam: Full ROM - Respiratory Exam Respiratory Exam: Clear to Ausculation Bilateral, NORMAL BREATHING PATTERN. absent: Accessory Muscle Use, Prolonged Expiratory Phase, Rhonchi, Wheezes, Respiratory Distress, Stridor - Cardiovascular Exam Cardiovascular Exam: REGULAR RHYTHM, RRR, +S1, +S2. absent: Murmur - GI/Abdominal Exam GI & Abdominal Exam: Soft, Normal Bowel Sounds. absent: Distended, Firm, Guarding, Rigid, Tenderness, Mass, Organomegaly, Rebound - Extremities Exam Extremities Exam: Normal Inspection. absent: Calf Tenderness, Pedal Edema - Back Exam Back Exam: NORMAL INSPECTION - Neurological Exam Neurological Exam: Alert, Awake, Oriented x3 - Psychiatric Exam Psychiatric exam: Normal Affect, Normal Mood - Skin Skin Exam: Dry, Normal Color, Warm Assessment and Plan - Assessment and Plan (Free Text) Assessment: 77 year old male with a past medical history of CAD s/p 5 stents (2 recent stents last week), hypertension, diabetes, and BPH, presents s/p syncopal episode and rash: Syncope: 2/2 orthostatic vs narcolepsy vs seizure vs cardiac - CT head- Moderate atrophy. No intracranial hemorrhage. No mass. Several scattered foci of decreased attenuation within periventricular/subcortical white matter - Chest X-ray- no active disease - EKG NSR HR 87 bpm,, Qtc 433 - Orthostatic VS positive. - neurology consulted. appreciate recs. - cardiology consulted. appreciate recs. - Echocardiogram and Carotid US pending read - CTA head and neck, EEG ordered per Neuro. F/u results. - Modafanil. - Physical therapy eval recommends home - high risk fall precautions Rash: - improved - patient was given Benadryl and solumedrol in Emergency department - benadryl 25mg q6 prn pruritis - prednisone 20 mg daily Hyponatremia: - resolved - monitor Hypomagnesemia: - repleted - mag level ordered for AM Hx of CAD: - continue home aspirin, statin. - Will hold metoprolol in setting of low BP, orthostatic hypotension - lipid profile: Triglycerides 43, Cholesterol 79, LDL<30, HDL 40 HX of Hypertension: - hold home metoprolol, losartan - monitor Hx of diabetes - heart healthy diet- carb consistent - ACHS blood glucose checks - Insulin sliding scale - hold home gliptin and metformin - A1c 6. HX of BPH - hold home rapaflo in setting of orthostatic hypotension Patient case discussed with and plan approved by attending physician, Dr Allen. Jessica Bergman, PGY1
--- NOTE | 2018-03-18 14:10 | CARD ---
APPROVED REPORT EXAM: Two-dimensional and M-mode echocardiogram with Doppler and color Doppler. INDICATION Syncope HX-CAD 2D DIMENSIONS Left Atrium (2D)4.4 (1.6-4.0cm)IVSd0.9 (0.7-1.1cm) LVDd4.0 (3.9-5.9cm)PWd0.9 (0.7-1.1cm) LVDs2.6 (2.5-4.0cm)FS (%) 35.9 % LVEF (%)66.1 (>50%) M-Mode DIMENSIONS Aortic Root4.00 (2.2-3.7cm)Aortic Cusp Exc.1.70 (1.5-2.0cm) Aortic Valve AoV Peak Duzmlewc190.0cm/sAoV VTI41.7cmAO Peak GR.10mmHg LVOT Peak Dpjbxnep91.8cm/sLVOT VTI25.50cmAO Mean GR.6mmHg Mitral Valve MV E Noxkyeft19.9cm/sMV A Mphycfia18.8cm/sE/A ratio1.1 TDI Lateral E' Peak V10.70cm/sMedial E' Peak V6.63cm/sE/Lateral E'8.6 E/Medial E'13.9 Pulmonary Valve PV Peak Qjbbvoba36.2cm/sPV Peak Grad.1mmHg Tricuspid Valve TR Peak Duyaoqsc032xf/sRAP STYKRDNU74xqYcYQ Peak Gr.18mmHg [id number] LEFT VENTRICLE The left ventricle is normal size. There is normal left ventricular wall thickness. The left ventricular function is normal.EF-65% There is normal LV segmental wall motion. Transmitral Doppler flow pattern is Grade III-reversible restrictive diastolic dysfunction. No left ventricle thrombus noted on this study. There is no ventricular septal defect visualized. There is no left ventricular aneurysm. There is no mass noted in the left ventricle. RIGHT VENTRICLE The right ventricle is normal size. There is normal right ventricular wall thickness. The right ventricular systolic function is normal. ATRIA The left atrium is borderline dilated. The right atrium size is normal. The interatrial septum is intact with no evidence for an atrial septal defect. AORTIC VALVE The aortic valve is calcified and displays decreased opening. There is trace to mild aortic regurgitation. There is mild to moderate valvular aortic stenosis. There is no aortic valvular vegetation. MITRAL VALVE The mitral valve is thickened but opens well. Mitral annular calcification is mild. Mitral regurgitation is mild to moderate. There is no mitral valve stenosis. There is no evidence of mitral valve prolapse. TRICUSPID VALVE The tricuspid valve leaflets are thickened , but open well. There is trace to mild tricuspid regurgitation.RVSP-28 mmof hg. There is no tricuspid valve stenosis. There is no tricuspid valve prolapse or vegetation. PULMONIC VALVE The pulmonary valve is normal in structure. There is trace pulmonic valvular regurgitation. There is no pulmonic valvular stenosis. GREAT VESSELS The aortic root is normal in size. The ascending aorta is normal in size. The pulmonary artery is normal. The IVC is normal in size and collapses >50% with inspiration. PERICARDIAL EFFUSION There is no pleural effusion. There is no pericardial effusion. <Conclusion> There is normal left ventricular wall thickness. The left ventricular function is normal.EF-65% There is trace to mild aortic regurgitation. There is mild to moderate valvular aortic stenosis. Mitral regurgitation is mild to moderate. There is trace to mild tricuspid regurgitation.RVSP-28 mmof hg. The IVC is normal in size and collapses >50% with inspiration. There is no pericardial effusion.
--- NOTE | 2018-03-18 14:42 | CT ---
PROCEDURE: CT Angiography of the neck with contrast HISTORY: syncope COMPARISON: None available. TECHNIQUE: Contiguous axial images of the neck were obtained from the level of the skull-base to the superior mediastinum in the arteriographic phase of enhancement. Coronal and sagittal reformats or also generated. IV contrast dose: Radiation Dose - DLP: mGy-cm This CT exam was performed using one or more of the following dose reduction techniques: Automated exposure control, adjustment of the mA and/or kV according to patient size, and/or use of iterative reconstruction technique. FINDINGS: RIGHT CAROTID ARTERIES: No significant stenosis LEFT CAROTID ARTERIES: Minimal calcified plaque left internal carotid with no stenosis VERTEBRAL ARTERIES: Right Vertebral Artery: Normal. Left Vertebral Artery: Normal. OTHER FINDINGS: None. IMPRESSION: No significant stenosis CT Angiography of the Brain. HISTORY: syncope COMPARISON: None available. TECHNIQUE: CT angiography of the intracranial arteries was performed. Coronal and sagittal maximum intensity projection reformated images were generated. This CT exam was performed using one or more of the following dose reduction techniques: Automated exposure control, adjustment of the mA and/or kV according to patient size, and/or use of iterative reconstruction technique. FINDINGS: INTERNAL CEREBRAL ARTERIES: Unremarkable. The skull base, petrous, cavernous and supraclinoid segments are bilaterally widely patent. Calcified internal carotid arteries are seen within the intra cavernous segments ANTERIOR CEREBRAL ARTERIES: Unremarkable. A1 and A2 segments are widely patent. Smaller distal branches unremarkable, as visualized. MIDDLE CEREBRAL ARTERIES: Unremarkable. M1 and M2 segments are widely patent. Perisylvian branches grossly symmetric. POSTERIOR CIRCULATION: Basilar Artery: Unremarkable. Distal Vertebral Arteries: Unremarkable. Posterior Cerebral Arteries: Unremarkable. Posterior Inferior Cerebellar Arteries: Unremarkable. ANEURYSM/ VASCULAR MALFORMATIONS: None. OTHER FINDINGS: None. IMPRESSION: Unremarkable CT Angiography of the Brain.
--- NOTE | 2018-03-18 15:27 | CP.PCM.DIS ---
<EduardoMichael - Last Filed: 03/18/18 15:29> Provider - Provider Date of Admission: 03/17/18 02:18 Attending physician: Andrey Allen MD Consults: Neurologist: , Dr. Gaffney Cardiology: Dr. Gutierrez Time Spent in preparation of Discharge (in minutes): 35 Diagnosis - Discharge Diagnosis (1) Orthostatic hypotension Status: Acute (2) Cataplexy and narcolepsy Status: Acute Priority: High Hospital Course - Lab Results Lab Results: Most Recent Lab Values WBC 8.2 10^3/ul (4.5-11.0) D 03/18/18 07:20 RBC 3.06 10^6/uL (3.5-6.1) L 03/18/18 07:20 Hgb 9.3 g/dL (14.0-18.0) L 03/18/18 07:20 Hct 27.3 % (42.0-52.0) L 03/18/18 07:20 MCV 89.2 fl (80.0-105.0) 03/18/18 07:20 MCH 30.4 pg (25.0-35.0) 03/18/18 07:20 MCHC 34.1 g/dl (31.0-37.0) 03/18/18 07:20 RDW 16.8 % (11.5-14.5) H 03/18/18 07:20 Plt Count 145 10^3/uL (120.0-450.0) 03/18/18 07:20 Gran % 74.8 % (50.0-68.0) H 03/18/18 07:20 Lymph % (Auto) 15.6 % (22.0-35.0) L 03/18/18 07:20 [place] % (Auto) 9.5 % (1.0-6.0) H 03/18/18 07:20 Eos % (Auto) 0.1 % (1.5-5.0) L 03/18/18 07:20 Baso % (Auto) 0.0 % (0.0-3.0) 03/18/18 07:20 Gran # 6.11 (1.4-6.5) 03/18/18 07:20 Lymph # (Auto) 1.3 (1.2-3.4) 03/18/18 07:20 [place] # (Auto) 0.8 (0.1-0.6) H 03/18/18 07:20 Eos # (Auto) 0.0 (0.0-0.7) 03/18/18 07:20 Baso # (Auto) 0.00 K/mm3 (0.0-2.0) 03/18/18 07:20 PT 13.1 SECONDS (9.4-12.5) H 03/16/18 23:53 INR 1.15 (0.93-1.08) H 03/16/18 23:53 APTT 32.7 Seconds (25.1-36.5) 03/16/18 23:53 Sodium 143 mmol/L (132-148) 03/18/18 07:30 Potassium 4.4 mmol/L (3.6-5.0) 03/18/18 07:30 Chloride 112 mmol/L (98-107) H 03/18/18 07:30 Carbon Dioxide 21 mmol/L (21-33) 03/18/18 07:30 Anion Gap 15 (10-20) 03/18/18 07:30 BUN 22 mg/dL (7-21) H 03/18/18 07:30 Creatinine 1.1 mg/dl (0.8-1.5) 03/18/18 07:30 Est GFR ( Amer) > 60 03/18/18 07:30 Est GFR (Non-Af Amer) > 60 03/18/18 07:30 POC Glucose (mg/dL) 111 mg/dL (65-110) H 03/18/18 11:35 Random Glucose 125 mg/dL (70-110) H 03/18/18 07:30 Hemoglobin A1c 6.0 % (4.2-6.5) 03/17/18 06:30 Calcium 9.6 mg/dL (8.4-10.5) 03/18/18 07:30 Magnesium 2.0 mg/dL (1.7-2.2) 03/17/18 06:30 Iron 25 ug/dL (45-180) L 03/17/18 06:30 TIBC 257 ug/dL (261-462) L 03/17/18 06:30 % Saturation 10 % (20-55) L 03/17/18 06:30 Ferritin 441.0 ng/mL 03/18/18 09:24 Total Bilirubin 0.5 mg/dL (0.2-1.3) 03/18/18 07:30 AST 14 U/L (17-59) L D 03/18/18 07:30 ALT 23 U/L (7-56) 03/18/18 07:30 Alkaline Phosphatase 64 U/L (38-126) 03/18/18 07:30 Lactate Dehydrogenase 381 U/L (333-699) 03/16/18 23:53 Total Creatine Kinase 35 U/L (35-230) 03/16/18 23:53 Troponin I < 0.01 ng/mL 03/17/18 16:55 Total Protein 5.9 g/dL (5.8-8.3) 03/18/18 07:30 Albumin 3.0 g/dL (3.0-4.8) 03/18/18 07:30 Globulin 2.9 gm/dL 03/18/18 07:30 Albumin/Globulin Ratio 1.1 (1.1-1.8) 03/18/18 07:30 Triglycerides 43 mg/dL (35-160) 03/17/18 06:30 Cholesterol 79 mg/dL (130-200) L 03/17/18 06:30 LDL Cholesterol Direct < 30 mg/dL (0-129) 03/17/18 06:30 HDL Cholesterol 40 mg/dL (29-60) 03/17/18 06:30 Free T4 1.13 ng/dL (0.78-2.19) 03/17/18 11:00 TSH 3rd Generation 0.15 mIU/mL (0.46-4.68) L 03/17/18 06:30 Urine Color Light yellow (YELLOW) 03/17/18 01:40 Urine Appearance Clear (CLEAR) 03/17/18 01:40 Urine pH 6.0 (4.7-8.0) 03/17/18 01:40 Ur Specific [place] 1.015 (1.005-1.035) 03/17/18 01:40 Urine Protein Negative mg/dL (<30 mg/dL) 03/17/18 01:40 Urine Glucose (UA) Negative mg/dL (NEGATIVE) 03/17/18 01:40 Urine Ketones Negative mg/dL (NEGATIVE) 03/17/18 01:40 Urine Blood Negative (NEGATIVE) 03/17/18 01:40 Urine Nitrate Negative (NEGATIVE) 03/17/18 01:40 Urine Bilirubin Negative (NEGATIVE) 03/17/18 01:40 Urine Urobilinogen 0.2 E.U./dL (<1 E.U./dL) 03/17/18 01:40 Ur Leukocyte Esterase Negative Yohan/uL (NEGATIVE) 03/17/18 01:40 - Hospital Course Hospital Course: 77 year old male with a past medical history of CAD s/p 5 stents (2 recent stents last week), hypertension, diabetes, IBS, and BPH who presented to the emergency department for evaluation and treatment of a syncopal episode. Patient was evaluated in ED and found to have Head CT negative for acute intracranial abnormalities. Neurology and Cardiology were consulted. Cardiology evaluated the patient and indicated patient was exhibiting orthostatic hypotension. Echocardiogram was conducted and interpreted as normal with EF 65% without wall motion abnormalities. Carotid US conducted and interpreted as normal. Neurology evaluated the patient and ordered CTA of head and neck to rule out vertebrobasilar insufficiency. Head CTA was preformed and found to be negative for stenosis and intracranial abnormalities. Patient was seen and evaluated by physical therapy and recommended for discharge to home. Discharge planning including medication reconciliation, outpatient follow up, and signs and symptoms to observe were discussed. Patient was in understanding and agreeable. See chart for full details. - Date & Time of H&P Date of H&P: 03/17/18 Time of H&P: 02:15 Discharge Exam - Head Exam Head Exam: ATRAUMATIC, NORMOCEPHALIC - Eye Exam Eye Exam: EOMI, PERRL - Neck Exam Neck exam: Full Rom - Respiratory Exam Respiratory Exam: Clear to PA & Lateral, NORMAL BREATHING PATTERN. absent: Rales, Rhonchi, Wheezes - Cardiovascular Exam Cardiovascular Exam: REGULAR RHYTHM, +S1, +S2 - GI/Abdominal Exam GI & Abdominal Exam: Firm, Normal Bowel Sounds, Soft. absent: Tenderness - Extremities Exam Extremities exam: normal capillary refill, pedal pulses present - Neurological Exam Neurological exam: Alert, CN II-XII Intact, Normal Gait, Oriented x3 - Psychiatric Exam Psychiatric exam: Normal Affect, Normal Mood - Skin Skin Exam: Dry, Warm Discharge Plan - Follow Up Plan Condition: GOOD Disposition: HOME/ ROUTINE Instructions: Narcolepsy, Orthostatic Hypotension Additional Instructions: Follow up with primary care physician with in one week of discharge Follow up with neurologist within 1-2 weeks upon discharge Follow up with outpatient EEG When getting up and down from lying to sitting or sitting to standing make sure you take 2 minutes in between each action and have support when moving Continue home medications as prescribed to you Return to the nearest emergency department if you experience chest pain, syncope , loss of consciousness, persistent fever, headache and nausea/vomiting <Karthik Gagnon - Last Filed: 03/18/18 16:36> Provider - Provider Date of Admission: 03/17/18 02:18 Attending physician: Andrey Allen MD Hospital Course - Lab Results Lab Results: Most Recent Lab Values WBC 8.2 10^3/ul (4.5-11.0) D 03/18/18 07:20 RBC 3.06 10^6/uL (3.5-6.1) L 03/18/18 07:20 Hgb 9.3 g/dL (14.0-18.0) L 03/18/18 07:20 Hct 27.3 % (42.0-52.0) L 03/18/18 07:20 MCV 89.2 fl (80.0-105.0) 03/18/18 07:20 MCH 30.4 pg (25.0-35.0) 03/18/18 07:20 MCHC 34.1 g/dl (31.0-37.0) 03/18/18 07:20 RDW 16.8 % (11.5-14.5) H 03/18/18 07:20 Plt Count 145 10^3/uL (120.0-450.0) 03/18/18 07:20 Gran % 74.8 % (50.0-68.0) H 03/18/18 07:20 Lymph % (Auto) 15.6 % (22.0-35.0) L 03/18/18 07:20 [place] % (Auto) 9.5 % (1.0-6.0) H 03/18/18 07:20 Eos % (Auto) 0.1 % (1.5-5.0) L 03/18/18 07:20 Baso % (Auto) 0.0 % (0.0-3.0) 03/18/18 07:20 Gran # 6.11 (1.4-6.5) 03/18/18 07:20 Lymph # (Auto) 1.3 (1.2-3.4) 03/18/18 07:20 [place] # (Auto) 0.8 (0.1-0.6) H 03/18/18 07:20 Eos # (Auto) 0.0 (0.0-0.7) 03/18/18 07:20 Baso # (Auto) 0.00 K/mm3 (0.0-2.0) 03/18/18 07:20 PT 13.1 SECONDS (9.4-12.5) H 03/16/18 23:53 INR 1.15 (0.93-1.08) H 03/16/18 23:53 APTT 32.7 Seconds (25.1-36.5) 03/16/18 23:53 Sodium 143 mmol/L (132-148) 03/18/18 07:30 Potassium 4.4 mmol/L (3.6-5.0) 03/18/18 07:30 Chloride 112 mmol/L (98-107) H 03/18/18 07:30 Carbon Dioxide 21 mmol/L (21-33) 03/18/18 07:30 Anion Gap 15 (10-20) 03/18/18 07:30 BUN 22 mg/dL (7-21) H 03/18/18 07:30 Creatinine 1.1 mg/dl (0.8-1.5) 03/18/18 07:30 Est GFR ( Amer) > 60 03/18/18 07:30 Est GFR (Non-Af Amer) > 60 03/18/18 07:30 POC Glucose (mg/dL) 111 mg/dL (65-110) H 03/18/18 11:35 Random Glucose 125 mg/dL (70-110) H 03/18/18 07:30 Hemoglobin A1c 6.0 % (4.2-6.5) 03/17/18 06:30 Calcium 9.6 mg/dL (8.4-10.5) 03/18/18 07:30 Magnesium 2.0 mg/dL (1.7-2.2) 03/17/18 06:30 Iron 25 ug/dL (45-180) L 03/17/18 06:30 TIBC 257 ug/dL (261-462) L 03/17/18 06:30 % Saturation 10 % (20-55) L 03/17/18 06:30 Ferritin 441.0 ng/mL 03/18/18 09:24 Total Bilirubin 0.5 mg/dL (0.2-1.3) 03/18/18 07:30 AST 14 U/L (17-59) L D 03/18/18 07:30 ALT 23 U/L (7-56) 03/18/18 07:30 Alkaline Phosphatase 64 U/L (38-126) 03/18/18 07:30 Lactate Dehydrogenase 381 U/L (333-699) 03/16/18 23:53 Total Creatine Kinase 35 U/L (35-230) 03/16/18 23:53 Troponin I < 0.01 ng/mL 03/17/18 16:55 Total Protein 5.9 g/dL (5.8-8.3) 03/18/18 07:30 Albumin 3.0 g/dL (3.0-4.8) 03/18/18 07:30 Globulin 2.9 gm/dL 03/18/18 07:30 Albumin/Globulin Ratio 1.1 (1.1-1.8) 03/18/18 07:30 Triglycerides 43 mg/dL (35-160) 03/17/18 06:30 Cholesterol 79 mg/dL (130-200) L 03/17/18 06:30 LDL Cholesterol Direct < 30 mg/dL (0-129) 03/17/18 06:30 HDL Cholesterol 40 mg/dL (29-60) 03/17/18 06:30 Free T4 1.13 ng/dL (0.78-2.19) 03/17/18 11:00 TSH 3rd Generation 0.15 mIU/mL (0.46-4.68) L 03/17/18 06:30 Urine Color Light yellow (YELLOW) 03/17/18 01:40 Urine Appearance Clear (CLEAR) 03/17/18 01:40 Urine pH 6.0 (4.7-8.0) 03/17/18 01:40 Ur Specific [place] 1.015 (1.005-1.035) 03/17/18 01:40 Urine Protein Negative mg/dL (<30 mg/dL) 03/17/18 01:40 Urine Glucose (UA) Negative mg/dL (NEGATIVE) 03/17/18 01:40 Urine Ketones Negative mg/dL (NEGATIVE) 03/17/18 01:40 Urine Blood Negative (NEGATIVE) 03/17/18 01:40 Urine Nitrate Negative (NEGATIVE) 03/17/18 01:40 Urine Bilirubin Negative (NEGATIVE) 03/17/18 01:40 Urine Urobilinogen 0.2 E.U./dL (<1 E.U./dL) 03/17/18 01:40 Ur Leukocyte Esterase Negative Yohan/uL (NEGATIVE) 03/17/18 01:40 Attending/Attestation - Attestation I have personally seen and examined this patient.: Yes I have fully participated in the care of the patient.: Yes I have reviewed all pertinent clinical information, including history, physical exam and plan: Yes Notes (Text): 03/18/18 16:29 Medical record note made by the resident after discussion with my direction and input after the patient was personally seen and examined by me. I have reviewed the chart and agree that the record accurately reflects by personal performance of the history, physical exam, data review, and medical decision-making, in the course for the patient. I have also personally directed the plan of care. 77 year old male with a past medical history of CAD s/p 5 stents hypertension, diabetes, IBS, and BPH was admitted with H/O syncope .The etiology of syncope is likely due to ortyhostatic hypotension.Patient CT scan of head, CTA of head and neck is unremarkable, patient 2D echo was reviewed.Patient is ambulatory at the time of discharge.Patient was given education about the orthostatic hypotension before discharge. He will have sleep study as out patient. Management plan was discussed in detail with patient. Education was provided.
--- NOTE | 2018-03-18 15:57 | PN ---
DATE: 03/18/2018 REASON FOR THE CONSULTATION AND FOLLOWUP: Coming out of the bathroom, feels dizzy and feel that he would pass out. SUBJECTIVE: The patient denies any chest pain, shortness of breath or any palpitations. The patient got IV fluid, now feels better. PHYSICAL EXAMINATION: VITAL SIGNS: Temperature afebrile, heart rate 72; blood pressure orthostatic as found to be 128/74, sitting 107/70 and standing 120/77. HEENT: PERRLA, intact. NECK: Supple. No carotid bruit. No thyromegaly. CHEST: Clear to auscultation. HEART: S1 and S2 regular. ABDOMEN: Soft. EXTREMITIES: Clubbing and cyanosis negative. LABORATORY DATA: Blood workup as follows: WBC 8.2, hemoglobin , hematocrit 27.3, platelet count 145. Chemistry shows sodium 140, potassium , chloride 112, carbon dioxide 21, anion gap of 15, BUN 22, creatinine 1.1. IMPRESSION: A 77-year-old male with a past medical history significant for coronary artery disease, history of ST-elevation myocardial infarction, multiple stents. Went to the bathroom and coming out of the commode, he will feel dizzy. The patient was not eating and drinking for a couple of days. At home, he had pruritic rash, which completely resolved on coming to the hospital. No change of medication, no change in the diet noted according to the daughter. Most recently, the patient had echocardiogram and stress test was negative. Recently, seen in the office and Brilinta was stopped because it was more than 2 years. Most likely, this syncopal episode is secondary to probably orthostatic hypotension. The patient was given IV fluid, repeat orthostatic was negative. Yesterday, the patient with orthostatic hypotension, lying 120/78, sitting 93/68 and standing 102/65. An 18 mm drop in blood pressure when standing, but today, the patient after IV fluid did not show any significant drop, only 8 mm drop in blood pressure. As mentioned, the patient had multiple percutaneous transluminal coronary angioplasties. Code ST-elevation myocardial infarction on 02/11/2016. At that time, the circumflex percutaneous transluminal coronary angioplasty was done and a staged percutaneous transluminal coronary angioplasty of mid to distal RCA was done on 02/28/2016. Last echo on 02/24/2016, ejection fraction , trace mitral regurgitation, trace aortic regurgitation, mild pulmonary regurgitation, mild tricuspid regurgitation, pressure 37. RECOMMENDATIONS: Continue IV fluid. We will get echo to assess LV function. Follow up. After echo review, if remaining stable, we will discharge home. The patient dropped some hemoglobin from 10.5 to 9.3, probably secondary to hemodilution because the patient was initially with orthostatic hypotension, IV fluid was given, but cannot rule out GI bleed, so we will send the stool for occult blood. Discussed with the patient. We will review echo when it is done and if echo is within the normal limit, possible discharge home today. Thank you, Dr. Allen for providing us the opportunity in taking care of the patient, Dima Holguin. Karthik Gutierrez MD
--- NOTE | 2018-03-18 21:45 | US ---
PROCEDURE: Bilateral carotid artery duplex ultrasound HISTORY: Carotid stenosis PHYSICIAN(S): Justino Gallegos MD. TECHNIQUE: Duplex sonography and color-flow Doppler were used to evaluate the carotid bifurcations and limited segments of the vertebral arteries bilaterally. FINDINGS: There is mild smooth heterogeneous plaque noted at the carotid bifurcations bilaterally. The peak systolic velocity in the proximal right internal carotid artery is 62 cm/sec. This corresponds to a 20 to 39% proximal right ICA stenosis. Normal systolic velocities are noted in the proximal right external carotid artery. There is antegrade flow in the right vertebral artery. The peak systolic velocity in the proximal left internal carotid artery is 80 cm/sec. This corresponds to a 20 to 39% proximal left ICA stenosis. Normal systolic velocities are noted in the proximal left external carotid artery. There is antegrade flow in the left vertebral artery. IMPRESSION: 1. Bilateral 20-39% proximal ICA stenoses. 2. Antegrade flow in both vertebral arteries.
== END 2018-03-18 16:22 | disposition home or self-care (01) ==
LOC: ED 22:53 → ERH 03-17 02:18 → 2RSO 03-17 03:10
PROVIDERS: ADMIT Internal Medicine; ATTEND Internal Medicine
DX: I95.1 Orthostatic hypotension (principal); G47.411 Narcolepsy with cataplexy; I10 Essential (primary) hypertension; E11.9 Type 2 diabetes mellitus without complications; N40.0 Benign prostatic hyperplasia without lower urinary tract symptoms; G83.9 Paralytic syndrome, unspecified; I25.10 Atherosclerotic heart disease of native coronary artery without angina pectoris; I25.2 Old myocardial infarction; K21.9 Gastro-esophageal reflux disease without esophagitis; K58.9 Irritable bowel syndrome, unspecified; E83.42 Hypomagnesemia; E87.1 Hypo-osmolality and hyponatremia; L29.9 Pruritus, unspecified; M19.90 Unspecified osteoarthritis, unspecified site; N20.0 Calculus of kidney; Z79.82 Long term (current) use of aspirin; Z87.442 Personal history of urinary calculi; Z87.891 Personal history of nicotine dependence; Z95.5 Presence of coronary angioplasty implant and graft; Z98.42 Cataract extraction status, left eye; Z98.41 Cataract extraction status, right eye; R44.2 Other hallucinations; G45.0 Vertebro-basilar artery syndrome
CPT/HCPCS: 36415; 70450; 70496; 70498; 71045; 80053; 80061; 81003; 82550; 82728; 82948; 83036; 83540; 83550; 83615; 83735; 84439; 84443; 84484; 85025; 85610; 85730; 93005; 93306; 93880; 95812; 96365; 96375; 97116; 97161; 97530; 99285; G0378; G8978; G8979; J1200; J2930; J3475; J7030; Q9967

== ENCOUNTER 2018-04-07 19:55 | Observation (INO) | payer MEDICARE, OTHER ==
[2018-04-07 19:56] VITALS: BMI 29.8
--- NOTE | 2018-04-07 21:16 | ED PDOC ---
Arrival/HPI - General Chief Complaint: High Blood Pressure Time Seen by Provider: 04/07/18 20:50 Historian: Patient, Family (spouse) - History of Present Illness Narrative History of Present Illness (Text): 04/07/18 21:05 pt p/w + ~ 2-3 weeks onset of labil BP; pt states he has noted BP > 200/100 in the past and today noted BP 90s/50; pt has been feeling weak/lightheadheaded, + dizzy, NO LOC, pt states he has no energy, and is easily fatigued; pt states no fever/chills/sweats no cp/sob/palpitations, no abd pain, no n/v, no numbness/ tingling, no urinary/bowel changes, no fall/trauma/sick contact, no travel; pt denied LOC. pt is here for further eval pt's without other complaints. pt denied slurr speech/vision changes PCP: Dr Mak Cards: Dr Gutierrez Time/Duration: Other (1 month) Symptom Onset: Gradual Symptom Course: Intermittent Activities at Onset: Rest Context: Home Past Medical History - Provider Review Nursing Documentation Reviewed: Yes - Travel History Have you recently traveled outside [place] w/in the past 3 mons?: No - Past History Past History: Non-Contributing - Infectious Disease Hx of Infectious Diseases: None - Tetanus Immunization Tetanus Immunization: Unknown - Cardiac Hx Hypertension: Yes Other/Comment: cardiac stent - Pulmonary Hx Respiratory Disorders: No - Neurological Hx Neurological Disorder: No - HEENT Hx HEENT Disorder: Yes Hx Cataracts: Yes (leanna sx) - Renal Hx Kidney Stones: Yes - Endocrine/Metabolic Hx Diabetes Mellitus Type 2: Yes - Hematological/Oncological Hx Blood Disorders: No - Integumentary Hx Dermatological Disorder: No - Musculoskeletal/Rheumatological Hx Arthritis: Yes - Gastrointestinal Hx Gastroesophageal Reflux: Yes - Genitourinary/Gynecological Hx Prostate Problems: Yes - Psychiatric Hx Depression: No Hx Emotional Abuse: No Hx Physical Abuse: No Hx Substance Use: No - Surgical History Hx Cardiac Catheterization: Yes Hx Coronary Stent: Yes (x3) - Anesthesia Hx Anesthesia Reactions: No - Suicidal Assessment Feels Threatened In Home Enviroment: No Family/Social History - Physician Review Nursing Documentation Reviewed: Yes Family/Social History: No Known Family HX Smoking Status: Former Smoker Hx Alcohol Use: No Hx Substance Use: No Hx Substance Use Treatment: No Allergies/Home Meds Allergies/Adverse Reactions: Allergies No Known Allergies Allergy (Verified 04/07/18 20:15) Home Medications: Home Meds Medication Instructions Recorded Confirmed Metoprolol Succinate 25 mg PO DAILY 01/06/14 04/07/18 Gabapentin [Neurontin] 300 mg PO BID 02/13/16 04/07/18 Mirtazapine [Remeron] 15 mg PO HS 02/13/16 04/07/18 Linaclotide [Linzess] 145 mcg PO DAILY 09/20/16 04/07/18 Losartan Potassium 25 mg PO DAILY 03/16/18 04/07/18 MetFORMIN ER [Glucophage XR] 750 mg PO DAILY 03/16/18 04/07/18 Saxagliptin HCl [Onglyza] 5 mg PO DAILY 03/16/18 04/07/18 Silodosin [Rapaflo] 8 mg PO DAILY 03/16/18 04/07/18 Review of Systems - Review of Systems Constitutional: Fatigue Eyes: Normal ENT: Normal Respiratory: Normal. absent: SOB Cardiovascular: Normal. absent: Chest Pain Gastrointestinal: Normal. absent: Abdominal Pain, Nausea, Vomiting Genitourinary Male: Normal Musculoskeletal: Normal Skin: Normal Neurological: Normal, Other (general weakness) Endocrine: Normal Hemo/Lymphatic: Normal Psychiatric: Normal Physical Exam - Physical Exam Narrative Physical Exam (Text): 04/07/182054 General: alert/awake, GCS = 15, oriented x 3, resting in bed, uncomfortable, cooperative, interactive; NAD Head: NC/AT EYE: PERRLA, EOMI, sclera anicteric, no nystagmus, no photophobia; visual field intact b/l Facial: WNL Oral: uvula/tongue are midline, no exudate/lesions, no drooling/stridor, no dysphonia; fair dentitions; mild dry oral mucosa NECK: intact ROM, no midline tenderness, no nuchal rigidity, no meningeal signs ; no step off Chest: CTA b/l, no w/r/r; no tachypenia, no accessory muscle use noted Chest Wall: no crepitus, no lesions, no gross deformities, no focal tenderness Cardiac: +S1, +S2, no m/r/r, no tachycardia Abdominal: +BS, soft/nd/nt, well nourished patient; no masses/rebound/guarding/ rigidity; no miguel's sign, no mcburney's point tenderness Extremities: intact ROM, strength 5/5 grossly intact in all limbs, neurovasc intact b/l; + ambulatory; reflex +2/2; no pitting edema/swelling noted b/l; no helen's sign BACK: no step off, no midline tenderness, NO crepitus, no gross deformities noted; Intact ROM SKIN: cap refill ~ 1 sec, no ulcerations, no petechiae, no rashes; slight pallor noted NEURO: CNII-XII WNL, no facial asymmetries, no slurr speech, oriented x 3 NIH stroke scale ~ 0 Psych: normal insight, normal affect; follows command with ease Vital Signs Reviewed: Yes Vital Signs Temp Pulse Resp BP Pulse Ox 04/07/18 23:49 69 18 138/76 100 04/07/18 23:44 69 18 138/76 100 04/07/18 21:56 76 18 138/74 100 04/07/18 20:10 98.8 F 82 18 174/84 H 99 Temperature: Afebrile Blood Pressure: Hypertensive Pulse: Regular Respiratory Rate: Normal Appearance: Positive for: Well-Appearing, Non-Toxic, Uncomfortable. No: Comfortable, Ill-Appearing Pain Distress: None Mental Status: Positive for: Alert and Oriented X 3 - Systems Exam Head: Present: Atraumatic, Normocephalic Medical Decision Making ED Course and Treatment: 04/07/182054 Impression: weakness, labile bp i have consider all the differential diagnosis regarding pt's chief medical complaints/clinical findings, including but are not limited to: weakness, labile BP A/P: weakness, labile BP - labs - iv - acs eval - supportive care - observe/reevaluation 2199 pt is currently resting in bed, NAD pt denied any chest pain/sob currently pt is at baseline mental states pt is awaiting diagnostic results given pt's abnl findings, clinical symptoms, as well as labile bp complaints, will recommend patient for admission pt is made aware and agrees 04/07/18 22:[address] Powers, who was made aware and would like additional diagnostic imaging/CT Head added, to contact his resident, and agrees with admission/observation [address] Powers's admitting resident, will evaluate patient at bedside 04/07/18 2250 pt is made aware of his medical results agrees with admission Re-evaluation Time: 21:32 - Lab Interpretations Lab Results: 04/07/18 21:23 04/07/18 21:23 Lab Results 04/07/18 21:23: Total Creatine Kinase 38, Triglycerides 74, Cholesterol 72 L, LDL Cholesterol Direct Pending, HDL Cholesterol 36, Free T3 pg/mL Pending 04/07/18 21:23: Sodium 130 L, Potassium 4.1, Chloride 98, Carbon Dioxide 21, Anion Gap 14, BUN 11, Creatinine 1.1, Est GFR ( Amer) > 60, Est GFR (Non- Af Amer) > 60, Random Glucose 93, Calcium 9.6, Total Bilirubin 1.0, AST 29, ALT 25, Alkaline Phosphatase 71, Troponin I < 0.01, Total Protein 6.8, Albumin 3.9, Globulin 2.9, Albumin/Globulin Ratio 1.4, Lipase 332 H 04/07/18 21:23: PT 12.4, INR 1.09 H, APTT 33.7 04/07/18 21:23: WBC 5.3 D, RBC 3.35 L, Hgb 10.3 L, Hct 29.6 L, MCV 88.4, MCH 30.7, MCHC 34.8, RDW 16.3 H, Plt Count 166, Gran % 60.0, Lymph % (Auto) 28.7, Gove % (Auto) 10.7 H, Eos % (Auto) 0.6 L, Baso % (Auto) 0.0, Gran # 3.21, Lymph # (Auto) 1.5, Gove # (Auto) 0.6, Eos # (Auto) 0.0, Baso # (Auto) 0.00 I have reviewed the lab results: Yes Interpretation: Abnormal lab values (decr NA; chronic anemia) - RAD Interpretation Narrative RAD Interpretations (Text): 04/07/18 23:54 prelim Chest X-ray - NAD CT head pending 04/08/18 01:30 CT Head shows: Brain: There is mild diffuse cerebral atrophy present, consistent with this patient's age. There is moderate diffuse heterogeneity of the white matter attenuation, consistent with chronic white matter ischemic changes. No hemorrhage. Ventricles: The ventricular system demonstrates mild diffuse compensatory enlargement. Bones/joints: Unremarkable. No acute fracture. Soft tissues: Unremarkable. Sinuses: Unremarkable as visualized. No acute sinusitis. Mastoid air cells: Unremarkable as visualized. No mastoid effusion. IMPRESSION: Age-related atrophy and chronic white matter ischemic changes, with no evidence of an acute intracranial abnormality. 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 - EKG Interpretation EKG Interpretation (Text): 04/07/18 23:54 Sinus rhythm at 70 bpm, with 1st degree av block, LAD, no ectopy, no st-t changes, ABNL EKG; unchanged compare with old ekg 03/2018 Interpreted by ED Physician: Yes Type: 12 lead EKG Comparison: Similar to previous EKG - Medication Orders Current Medication Orders: Acetaminophen (Tylenol 325mg Tab) 650 mg PO Q6H PRN PRN Reason: Headache Aspirin (Ecotrin) 81 mg PO DAILY [facility] Atorvastatin Calcium (Lipitor) 40 mg PO DIN [facility] Enoxaparin Sodium (Lovenox) 40 mg SC DAILY [facility] PRN Reason: Protocol Sodium Chloride (Sodium Chloride 0.9%) 1,000 mls @ 100 mls/hr IV .Q10H [facility] Last Admin: 04/08/18 01:14 Dose: 100 mls/hr eMAR Start Stop Document 04/08/18 01:14 MALACHI (Rec: 04/08/18 01:14 MALACHI [id number]) Intravenous Solution Start Date 04/08/18 Start Time 01:14 Insulin Human Regular (Humulin R Low) 0 units SC ACHS [facility] PRN Reason: Protocol Losartan Potassium (Cozaar) 25 mg PO DAILY [facility] Metoprolol Succinate (Toprol Xl) 25 mg PO DAILY [facility] Mirtazapine (Remeron) 15 mg PO HS [facility] Non-Formulary Medication (Linaclotide [Linzess]) 145 mcg PO DAILY [facility] Non-Formulary Medication (Silodosin [Rapaflo]) 8 mg PO DAILY [facility] Pantoprazole Sodium (Protonix Ec Tab) 40 mg PO 0600 [facility] Discontinued Medications Aspirin (Aspirin) 325 mg PO STAT STA Stop: 04/07/18 21:06 Last Admin: 04/07/18 21:14 Dose: 325 mg Disposition/Present on Arrival - Present on Arrival Any Indicators Present on Arrival: No History of DVT/PE: No History of Uncontrolled Diabetes: No Urinary Catheter: No History of Decub. Ulcer: No History Surgical Site Infection Following: None - Disposition Have Diagnosis and Disposition been Completed?: Yes Diagnosis: Weakness, Near syncope, Blood pressure instability Disposition: HOSPITALIZED Disposition Time: 21:33 Patient Plan: Admission, Telemetry Patient Problems: Current Active Problems Problem Status Onset Weakness Acute Near syncope Acute Blood pressure instability Acute Condition: STABLE
[2018-04-07 21:42] LABS: EOS % 0.6 % (1.5-5.0); GRAN # 3.21 (1.4-6.5); HEMOGLOBIN 10.3 g/dL (14.0-18.0); LYMPH # 1.5 (1.2-3.4); LYMPH % 28.7 % (22.0-35.0); MEAN CELL VOLUME 88.4 fl (80.0-105.0); MEAN CORPUSCULAR HEMOGLOBIN 30.7 pg (25.0-35.0); MEAN CORPUSCULAR HGB CONC 34.8 g/dl (31.0-37.0); MONO # 0.6 (0.1-0.6); MONO % 10.7 % (1.0-6.0); PLATELET COUNT 166 10^3/uL (120.0-450.0); RBC 3.35 10^6/uL (3.5-6.1); RED CELL DISTRIBUTION WIDTH 16.3 % (11.5-14.5); WHITE BLOOD COUNT 5.3 10^3/ul (4.5-11.0)
[2018-04-07 21:53] LABS: INR 1.09 (0.93-1.08); PARTIAL THROMBOPLASTIN TIME 33.7 Seconds (25.1-36.5); PROTHROMBIN TIME 12.4 SECONDS (9.4-12.5)
[2018-04-07 22:01] LABS: ALB/GLOB RATIO 1.4 (1.1-1.8); ALBUMIN 3.9 g/dL (3.0-4.8); ALT/SGPT 25 U/L (7-56); AST/SGOT 29 U/L (17-59); BLOOD UREA NITROGEN 11 mg/dL (7-21); CALCIUM 9.6 mg/dL (8.4-10.5); GFR AFRICAN-AMERICAN > 60; GFR NON-AFRICAN AMERICAN > 60; LIPASE 332 U/L (23-300)
[2018-04-07 22:11] LABS: TROPONIN I < 0.01 ng/mL
[2018-04-07] MEDS ORDERED: Sodium Chloride 0.9% 1,000 ML IV SCH (23:45)
[2018-04-08 01:27] LABS: HDL CHOLESTEROL 36 mg/dL (29-60)
--- NOTE | 2018-04-08 01:32 | CP.PCM.HP ---
History of Present Illness - History of Present Illness History of Present Illness: 77 M PMHx of CAD s/p 6 stents (most recent 03/[address] Gutierrez), HTN, BPH who presented to the ED with complaints of a throbbing headache with variations in his home blood pressure monitoring from 91/45 to 200/110 this afternoon. He denies any loss of conciousness, changes in vision, N/V, weakness, CP, SOB, changes in urination, loss of feeling in his extremities. He admits to a frontal headache 8/10 and some tension in his posterior cervicals, but does not take any medications for it specifically. Pt admits to decreased appetite recently. Pt is compliant with his BP and DM meds as perscribed by Dr Mak. Of note, pt was admitted three weeks ago for loss of conciousness (for 5 minutes ) and weakness. Echo at that time showed an EF of 66% and 20-39% ICA stenoses on carotid U/S. PMH: CAD s/p stents, hypertension, diabetes, BPH, IBS PSHx: bialateral inguinal hernia repair Social History: Denies alcohol use, quit smoking 7 years ago, denies illicit drug use Family Hx: noncontributory PMD: Dr. Diaz Present on Admission - Present on Admission Any Indicators Present on Admission: Yes Review of Systems - Review of Systems Review of Systems: 12 point ROS as per HPI, otherwise negative Past Patient History - Infectious Disease Hx of Infectious Diseases: None - Tetanus Immunizations Tetanus Immunization: Unknown - Past Social History Smoking Status: Former Smoker - CARDIAC Hx Hypertension: Yes Other/Comment: cardiac stent - PULMONARY Hx Respiratory Disorders: No - NEUROLOGICAL Hx Neurological Disorder: No - HEENT Hx HEENT Problems: Yes Hx Cataracts: Yes (leanna sx) - RENAL Hx Kidney Stones: Yes - ENDOCRINE/METABOLIC Hx Diabetes Mellitus Type 2: Yes - HEMATOLOGICAL/ONCOLOGICAL Hx Blood Disorders: No - INTEGUMENTARY Hx Dermatological Problems: No - MUSCULOSKELETAL/RHEUMATOLOGICAL Hx Arthritis: Yes - GASTROINTESTINAL Hx Gastroesophageal Reflux: Yes - GENITOURINARY/GYNECOLOGICAL Hx Prostate Problems: Yes - PSYCHIATRIC Hx Depression: No Hx Emotional Abuse: No Hx Physical Abuse: No Hx Substance Use: No - SURGICAL HISTORY Hx Cardiac Catheterization: Yes Hx Coronary Stent: Yes (x3) - ANESTHESIA Hx Anesthesia Reactions: No Meds Allergies/Adverse Reactions: Allergies Allergy/AdvReac Type Severity Reaction Status Date / Time No Known Allergies Allergy Verified 04/07/18 20:15 Physical Exam - Constitutional Appears: Non-toxic, No Acute Distress - Head Exam Head Exam: ATRAUMATIC, NORMAL INSPECTION, NORMOCEPHALIC - Eye Exam Eye Exam: EOMI, Normal appearance - ENT Exam ENT Exam: Mucous Membranes Dry - Respiratory Exam Respiratory Exam: Clear to Auscultation Bilateral, NORMAL BREATHING PATTERN - Cardiovascular Exam Cardiovascular Exam: RRR, +S1, +S2 - GI/Abdominal Exam GI & Abdominal Exam: Normal Bowel Sounds, Soft. absent: Tenderness - Extremities Exam Extremities exam: Positive for: normal inspection. Negative for: calf tenderness, pedal edema - Neurological Exam Neurological exam: Alert, CN II-XII Intact, Oriented x3, Reflexes Normal - Psychiatric Exam Psychiatric exam: Normal Affect, Normal Mood - Skin Skin Exam: Intact, Normal Color, Warm Results - Vital Signs Recent Vital Signs: Last Vital Signs Temp 98.8 F 04/07/18 20:10 Pulse 69 04/07/18 23:49 Resp 18 04/07/18 23:49 BP 138/76 04/07/18 23:49 Pulse Ox 100 04/07/18 23:49 - Labs Result Diagrams: 04/07/18 21:23 04/07/18 21:23 Labs: Laboratory Results - last 24 hr 04/07/18 04/07/18 04/07/18 21:23 21:23 21:23 WBC 5.3 D RBC 3.35 L Hgb 10.3 L Hct 29.6 L MCV 88.4 MCH 30.7 MCHC 34.8 RDW 16.3 H Plt Count 166 Gran % 60.0 Lymph % (Auto) 28.7 Osborne % (Auto) 10.7 H Eos % (Auto) 0.6 L Baso % (Auto) 0.0 Gran # 3.21 Lymph # (Auto) 1.5 Osborne # (Auto) 0.6 Eos # (Auto) 0.0 Baso # (Auto) 0.00 PT 12.4 INR 1.09 H APTT 33.7 Sodium 130 L Potassium 4.1 Chloride 98 Carbon Dioxide 21 Anion Gap 14 BUN 11 Creatinine 1.1 Est GFR ( Amer) > 60 Est GFR (Non-Af Amer) > 60 Random Glucose 93 Calcium 9.6 Total Bilirubin 1.0 AST 29 ALT 25 Alkaline Phosphatase 71 Troponin I < 0.01 Total Protein 6.8 Albumin 3.9 Globulin 2.9 Albumin/Globulin Ratio 1.4 Lipase 332 H Assessment & Plan - Assessment and Plan (Free Text) Plan: 77 M with a PMHx of HTN, CAD with multiple stents, DM, BPH who presents to ED with frontal headache and labile BP. 1. Headache Admit for observation F/u CT head w/o contrast Tylenol for head and neck pain Trend troponins x2 to rule out cardiac etiology. First was negative at 0.01. F/u VS q4 to evaluate BP, with orthostatics Neuro and cardio consult placed. F/u drug screen and UA 2. Hypertension Continue home medications vitals q4h Cardiology consult, Dr. Kuo 3. DM Begin on ISS. Hold oral hypoglycemics 4. Hx of CAD Recent echo 03/25 (66% EF) so will not re-scan F/u Lipid and throid panels F/u Repeat EKG 5. Hyponatremia 130 - per earlier labs , seems to be at baseline - pt admits to poor oral intake, so will encourage increased intake moving forward 6.BPH controlled with alpha 1 josé luis silodosin f/u PSA 7. Prophylaxis Protonix Lovenox
[2018-04-08 01:47] LABS: FREE T4 1.14 ng/dL (0.78-2.19); T4 8.5 ug/dL (5.5-11.0)
[2018-04-08 02:00] LABS: LDL CHOLESTEROL < 30 mg/dL (0-129)
[2018-04-08 05:30] LABS: URINE BILIRUBIN NEGATIVE (NEGATIVE); URINE BLOOD NEGATIVE (NEGATIVE); URINE GLUCOSE (UA) NEGATIVE (NEGATIVE); URINE LEUKOCYTE ESTERASE NEGATIVE Leu/uL (NEGATIVE); URINE PROTEIN NEGATIVE mg/dL (<30 mg/dL); URINE UROBILINOGEN 0.2 E.U./dL (<1 E.U./dL)
[2018-04-08 05:36] LABS: URINE APPEARANCE CLEAR (CLEAR); URINE COLOR YELLOW (YELLOW)
[2018-04-08] MEDS: Pantoprazole 40 mg EC Tab PO SCH (06:26)
[2018-04-08 07:25] LABS: ALB/GLOB RATIO 1.2 (1.1-1.8); ALBUMIN 3.7 g/dL (3.0-4.8); ALT/SGPT 26 U/L (7-56); AST/SGOT 22 U/L (17-59); BLOOD UREA NITROGEN 10 mg/dL (7-21); CALCIUM 9.6 mg/dL (8.4-10.5); GFR AFRICAN-AMERICAN > 60; GFR NON-AFRICAN AMERICAN > 60
[2018-04-08 07:33] LABS: MEAN CELL VOLUME 88.2 fl (80.0-105.0); MEAN CORPUSCULAR HEMOGLOBIN 30.2 pg (25.0-35.0); MEAN CORPUSCULAR HGB CONC 34.2 g/dl (31.0-37.0); PLATELET COUNT 159 10^3/uL (120.0-450.0); RBC 3.31 10^6/uL (3.5-6.1); RED CELL DISTRIBUTION WIDTH 16.1 % (11.5-14.5); WHITE BLOOD COUNT 4.4 10^3/ul (4.5-11.0)
[2018-04-08 07:34] LABS: TROPONIN I 0.02 ng/mL
[2018-04-08] MEDS: Insulin Reg-LOW-Coverage SC SCH ×4 (07:38→22:38)
--- NOTE | 2018-04-08 07:48 | CT ---
PROCEDURE: CT HEAD WITHOUT CONTRAST. HISTORY: dizziness COMPARISON: 03/17/2018 CT head TECHNIQUE: Axial computed tomography images were obtained through the head/brain without intravenous contrast. Coronal and sagittal reconstructed images. Radiation dose: Total exam DLP = 840.46 mGy-cm. This CT exam was performed using one or more of the following dose reduction techniques: Automated exposure control, adjustment of the mA and/or kV according to patient size, and/or use of iterative reconstruction technique. FINDINGS: HEMORRHAGE: No intracranial hemorrhage. BRAIN: No mass effect or edema. Cortical atrophy, periventricular small vessel disease. VENTRICLES: Unremarkable. No hydrocephalus. CALVARIUM: Unremarkable. PARANASAL SINUSES: Unremarkable as visualized. No significant inflammatory changes. MASTOID AIR CELLS: Unremarkable as visualized. No inflammatory changes. OTHER FINDINGS: None. IMPRESSION: No acute intracranial abnormalities. No significant findings to account for the clinical presentation. No significant interval change compared to the prior examination(s). Concordant results (preliminary interpretation) provided by [facility]. Procedure Completed: 00:50 Preliminary ([facility]) Report: Dictated and Authenticated: 01:28 Final Interpretation: 07:46 April 08, 2018.
[2018-04-08] MEDS: Metoprolol Succinate 25 mg XL Tab PO SCH (09:21)
[2018-04-08] MEDS: Enoxaparin 40 mg Syringe SC SCH (09:23)
--- NOTE | 2018-04-08 09:28 | CP.PCM.PN ---
Subjective - Date & Time of Evaluation Date of Evaluation: 04/08/18 Time of Evaluation: 07:30 - Subjective Subjective: No acute events overnight. Patient Objective - Vital Signs/Intake and Output Vital Signs (last 24 hours): Temp Pulse Resp BP Pulse Ox 97.8 F 65 20 152/89 H 98 04/08/18 06:00 04/08/18 06:00 04/08/18 06:00 04/08/18 06:00 04/08/18 06:00 Intake and Output: 04/08/18 04/08/18 06:59 18:59 Intake Total 240 Output Total 525 Balance -285 - Medications Medications: Current Medications Acetaminophen (Tylenol 325mg Tab) 650 mg PO Q6H PRN PRN Reason: Headache Aspirin (Ecotrin) 81 mg PO DAILY RAUL[facility]O Atorvastatin Calcium (Lipitor) 40 mg PO DIN RAULITO Enoxaparin Sodium (Lovenox) 40 mg SC DAILY RAUL[facility]O PRN Reason: Protocol Sodium Chloride (Sodium Chloride 0.9%) 1,000 mls @ 100 mls/hr IV .Q10H [facility] Last Admin: 04/08/18 01:14 Dose: 100 mls/hr Insulin Human Regular (Humulin R Low) 0 units SC ACHS RAULITO PRN Reason: Protocol Last Admin: 04/08/18 07:38 Dose: Not Given Losartan Potassium (Cozaar) 25 mg PO DAILY RAUL[facility]O Metoprolol Succinate (Toprol Xl) 25 mg PO DAILY RA[facility]O Mirtazapine (Remeron) 15 mg PO HS [facility] Non-Formulary Medication (Linaclotide [Linzess]) 145 mcg PO DAILY [facility] Non-Formulary Medication (Silodosin [Rapaflo]) 8 mg PO DAILY [facility] Pantoprazole Sodium (Protonix Ec Tab) 40 mg PO 0600 [facility] Last Admin: 04/08/18 06:26 Dose: 40 mg - Labs Labs: 04/08/18 06:30 04/08/18 06:30 PT 12.4 SECONDS (9.4-12.5) 04/07/18 21:23 INR 1.09 (0.93-1.08) H 04/07/18 21:23 APTT 33.7 Seconds (25.1-36.5) 04/07/18 21:23
[2018-04-08] MEDS ORDERED: Non Formulary Medication (Linaclotide [Linzess] 145 MCG) PO SCH (10:00)
--- NOTE | 2018-04-08 11:18 | RAD ---
HISTORY: Weakness, abnormal blood pressure. COMPARISON: 03/17/2018 FINDINGS: LUNGS: No active pulmonary disease. PLEURA: No significant pleural effusion identified, no pneumothorax apparent. CARDIOVASCULAR: No radiographic findings to suggest acute or significant cardiovascular disease. OSSEOUS STRUCTURES: No significant abnormalities. VISUALIZED UPPER ABDOMEN: Normal. OTHER FINDINGS: None. IMPRESSION: No active disease. No significant interval change compared to the prior examination(s). Concordant results with the preliminary interpretation rendered by the emergency department physician procedure.
[2018-04-08 12:02] LABS: TROPONIN I < 0.01 ng/mL
--- NOTE | 2018-04-08 13:38 | CT ---
PROCEDURE: CT abdomen pelvis dated 04/08/2018 HISTORY: Anemia COMPARISON: None. TECHNIQUE: Contiguous axial images of the abdomen and pelvis. . Coronal and Sagittal reformats generated. Radiation dose: Total exam DLP = 772.828 mGy-cm. This CT exam was performed using one or more of the following dose reduction techniques: Automated exposure control, adjustment of the mA and/or kV according to patient size, and/or use of iterative reconstruction technique. FINDINGS: LOWER THORAX: Mild passive/dependent type atelectasis both posterior lower lung young. . No evidence of effusion or basilar pneumothorax. Heart remains enlarged. Previously noted large pericardial effusion resolved. There is a small hiatal hernia. Slight wall thickening of the distal esophagus likely due to protrusion gastric mucosa however esophagitis or other intrinsic wall lesion not excluded. LIVER: The liver exhibits normal size the measuring approximately 16 cm in CC dimension. No obvious hepatic mass collection or calcification. GALLBLADDER AND BILE DUCTS: Unremarkable. No evidence of gallstones. PANCREAS: The pancreas is slightly atrophic and fatty replaced. No obvious pancreatic mass collection or calcification. SPLEEN: Spleen exhibits normal size and attenuation pattern without mass collection or calcification. ADRENALS: No adrenal lesions. KIDNEYS AND URETERS: There are 2 left-sided renal cysts 1 arising from the lateral cortex upper/ midpole measuring approximately 2.6 cm in greatest transverse dimension and the 2nd arising from the lower pole measuring approximately 8 mm. 2 additional smaller exophytic cysts seen arising from the lower pole left kidney. . Additionally, there is a 17.5 mm elliptical shaped cyst lateral cortex mid pole right kidney and another small 8.5 mm cyst anterior cortex lower pole right kidney. Follow-up ultrasound could be performed to further characterize smaller cyst which is less well seen. The. Renal ultrasound could be performed to further evaluate all of these cysts if indicated. BLADDER: Urinary bladder is physiologically distended. Minimal wall thickening. . Muscular hypertrophy presumably contributes. . Correlation with urinalysis. REPRODUCTIVE: Prostate gland is enlarged measuring approximately 5 cm in transverse dimension. Prostatic calcifications are present. APPENDIX: Appendix is not seen with certainty however no obvious inflammatory changes right lower quadrant of the abdomen BOWEL: Evaluation of the bowel is somewhat limited due to the lack of oral contrast material. Stomach is incompletely distended which presumably in part accounts thick-walled appearance. Gastritis or other intrinsic wall lesion not excluded. Visualized loops of small bowel exhibit normal contour and caliber. No evidence of acute mechanical small bowel obstruction. Stool and air seen throughout the large bowel. No definitive evidence of mural wall thickening. PERITONEUM: Unremarkable. No fluid collection. No free air. . Small fat containing umbilical hernia. There are small fat containing on inguinal hernias left larger than right side. Note made of small amount subcutaneous air along the left lateral lower abdominal subcutaneous tissues; findings could be secondary to subcutaneous injection. Clinical correlation recommended. LYMPH NODES: Few small nonspecific retroperitoneal and mesenteric lymph nodes are present. VASCULATURE: Unremarkable. No aortic aneurysm. . Mild dilatation of both the proximal iliac artery is the slightly increased in diameter from prior study. . Right iliac artery measures approximately 2.45 and left iliac artery measures approximately 2.1 cm in greatest dimension. BONES: Minor multilevel degenerative spondylosis of the lower thoracic and lumbar spine. No acute compression fractures no retropulsed fragments. OTHER FINDINGS: None. IMPRESSION: Bilateral renal cysts. Followup ultrasound could be performed for further evaluation if indicated. Enlarged prostate gland likely due BPH however correlation PSA recommended. Slightly dilated proximal bilateral iliac arteries as above.
--- NOTE | 2018-04-08 15:30 | MRI ---
PROCEDURE: MRI BRAIN WITHOUT CONTRAST HISTORY: Headache COMPARISON: Comparison made with prior CT scan brain dated 04/08/2018 TECHNIQUE: Multiplanar, multisequence MR images of the brain were obtained without intravenous contrast enhancement. FINDINGS: HEMORRHAGE: No acute parenchymal, subarachnoid nor extra-axial hemorrhage. No evidence of hemosiderin deposition is identified on gradient echo weighted sequence. DWI: No evidence of an acute or early subacute infarction seen on diffusion imaging. . BRAIN PARENCHYMA: Mild moderate diffuse/ confluent chronic periventricular white matter ischemic changes seen extending peripherally into the deep and subcortical white matter both cerebral hemispheres. In addition, there are multiple more discrete chronic appearing lacunar type infarcts scattered about the deep and subcortical white matter of both cerebral hemispheres. None of these changes exhibit restricted diffusion. Moderate central volume loss evidenced by disproportionate enlargement of the ventricles as compared sulci. . There is also mild thinning of the corpus callosum. VENTRICLES: Unremarkable. No hydrocephalus. CRANIUM: No acute calvarial abnormalities. ORBITS: Changes of left-sided cataract surgery are present. PARANASAL SINUSES/MASTOIDS: Clear VASCULAR SYSTEM: Visualized major vascular flow voids at skull base patent. OTHER FINDINGS: None. IMPRESSION: No acute intracranial hemorrhage or infarct. Mild to moderate chronic white matter ischemic changes. Moderate central volume loss.
--- NOTE | 2018-04-08 16:20 | CP.PCM.CON ---
<Juan Jose Yadav - Last Filed: 04/08/18 19:51> History of Present Illness - History of Present Illness History of Present Illness: PGY6 GI Fellow Consult Note Patient is a 77yo Slovak-speaking male with PMHx significant for CAD s/p CABG and PCIx6, HTN, DM, chronic idiopathic constipation, BPH who presented to the ED with complaints of labile blood pressure and headache. [employer] [place] tire mounter #[id number] utilized during interview/examination. Patient states that in the last 24-48 hours he has had significant changes in his BP, from hypotension (~90/40) to hypertensive (~200/110). As he developed throbbing headache, he opted to come to the ED for further evaluation. Our service has been consulted due to long standing anemia. On review of the patient's chart, his baseline HGB range has been 8-10 dating back to 2013. Patient currently uses iron supplements twice daily and has dark, formed stool as a result. Denies any overt bleeding such as rectal bleeding, hematuria, hematemesis. Was previously on ASA/Brilinta but states he has not used Brilinta in over 1 year. No new blood thinners. Denies any weight loss, nausea, vomiting, abdominal pain , palpitations, SOB, dizziness, lightheadedness. 12 system ROS performed and negative except where stated. PMHx: See HPI PSHx: B/L inguinal hernia, CABG FHx: Discussed with patient and he denies any contributory family history Social: Former smoker, denies EtOH or illicit drug use Endo: No prior endoscopic evaluations Past Patient History - Infectious Disease Hx of Infectious Diseases: None - Tetanus Immunizations Tetanus Immunization: Unknown - Past Social History Smoking Status: Former Smoker - CARDIAC Hx Hypertension: Yes - PULMONARY Hx Respiratory Disorders: No - NEUROLOGICAL Hx Neurological Disorder: No - HEENT Hx HEENT Problems: Yes Hx Cataracts: Yes (leanna sx) - RENAL Hx Kidney Stones: Yes - ENDOCRINE/METABOLIC Hx Diabetes Mellitus Type 2: Yes - HEMATOLOGICAL/ONCOLOGICAL Hx Blood Disorders: No - INTEGUMENTARY Hx Dermatological Problems: No - MUSCULOSKELETAL/RHEUMATOLOGICAL Hx Falls: No - GASTROINTESTINAL Hx Gastroesophageal Reflux: Yes - GENITOURINARY/GYNECOLOGICAL Hx Prostate Problems: Yes - PSYCHIATRIC Hx Depression: No Hx Emotional Abuse: No Hx Physical Abuse: No - SURGICAL HISTORY Hx Surgeries: Yes Hx Cardiac Catheterization: Yes Hx Coronary Stent: Yes (x3) - ANESTHESIA Hx Anesthesia Reactions: No Meds Allergies/Adverse Reactions: Allergies Allergy/AdvReac Type Severity Reaction Status Date / Time No Known Allergies Allergy Verified 04/07/18 20:15 - Medications Medications: Current Medications Acetaminophen (Tylenol 325mg Tab) 650 mg PO Q6H PRN PRN Reason: Headache Aspirin (Ecotrin) 81 mg PO DAILY [facility] Last Admin: 04/08/18 09:21 Dose: 81 mg Atorvastatin Calcium (Lipitor) 40 mg PO DIN [facility] Enoxaparin Sodium (Lovenox) 40 mg SC DAILY [facility] PRN Reason: Protocol Last Admin: 04/08/18 09:23 Dose: 40 mg Sodium Chloride (Sodium Chloride 0.9%) 1,000 mls @ 100 mls/hr IV .Q10H [facility] Last Admin: 04/08/18 01:14 Dose: 100 mls/hr Insulin Human Regular (Humulin R Low) 0 units SC ACHS [facility] PRN Reason: Protocol Last Admin: 04/08/18 12:00 Dose: Not Given Losartan Potassium (Cozaar) 25 mg PO DAILY [facility] Last Admin: 04/08/18 09:22 Dose: 25 mg Metoprolol Succinate (Toprol Xl) 25 mg PO DAILY [facility] Last Admin: 04/08/18 09:21 Dose: 25 mg Mirtazapine (Remeron) 15 mg PO HS [facility] Non-Formulary Medication (Linaclotide [Linzess]) 145 mcg PO DAILY [facility] Last Admin: 04/08/18 09:23 Dose: Not Given Non-Formulary Medication (Silodosin [Rapaflo]) 8 mg PO DAILY [facility] Last Admin: 04/08/18 09:23 Dose: Not Given Pantoprazole Sodium (Protonix Ec Tab) 40 mg PO 0600 [facility] Last Admin: 04/08/18 06:26 Dose: 40 mg Physical Exam - Constitutional Appears: Non-toxic, No Acute Distress - Eye Exam Eye Exam: EOMI, PERRL - ENT Exam ENT Exam: Mucous Membranes Moist - Respiratory Exam Respiratory Exam: Clear to Auscultation Bilateral. absent: Rales, Rhonchi, Wheezes - Cardiovascular Exam Cardiovascular Exam: RRR, +S1, +S2 - GI/Abdominal Exam GI & Abdominal Exam: Normal Bowel Sounds, Soft. absent: Distended, Firm, Guarding, Hernia, Organomegaly, Tenderness - Extremities Exam Extremities exam: Positive for: normal inspection. Negative for: pedal edema - Neurological Exam Neurological exam: Alert, Oriented x3 - Psychiatric Exam Psychiatric exam: Normal Affect, Normal Mood - Skin Skin Exam: Dry, Warm Results - Vital Signs Recent Vital Signs: Last Vital Signs Temp 98.7 F 04/08/18 12:00 Pulse 66 04/08/18 14:00 Resp 20 04/08/18 12:00 BP 91/58 L 04/08/18 12:00 Pulse Ox 98 04/08/18 06:00 - Labs Result Diagrams: 04/08/18 06:30 04/08/18 06:30 Labs: Laboratory Results - last 24 hr 04/08/18 04/08/18 04/08/18 01:00 06:30 06:30 WBC 4.4 L RBC 3.31 L Hgb 10.0 L Hct 29.2 L MCV 88.2 MCH 30.2 MCHC 34.2 RDW 16.1 H Plt Count 159 Retic Count Sodium 136 Potassium 3.9 Chloride 101 Carbon Dioxide 24 Anion Gap 15 BUN 10 Creatinine 1.1 Est GFR ( Amer) > 60 Est GFR (Non-Af Amer) > 60 POC Glucose (mg/dL) Random Glucose 82 Calcium 9.6 Iron TIBC % Saturation Ferritin Total Bilirubin 1.0 AST 22 ALT 26 Alkaline Phosphatase 64 Troponin I 0.02 D Total Protein 6.7 Albumin 3.7 Globulin 3.0 Albumin/Globulin Ratio 1.2 Prostate Specific Ag 25-OH Vitamin D Total Urine Color Yellow Urine Appearance Clear Urine pH 6.0 Ur Specific [place] <= 1.005 Urine Protein Negative Urine Glucose (UA) Negative Urine Ketones Negative Urine Blood Negative Urine Nitrate Negative Urine Bilirubin Negative Urine Urobilinogen 0.2 Ur Leukocyte Esterase Negative 04/08/18 04/08/18 04/08/18 06:30 06:30 07:25 WBC RBC Hgb Hct MCV MCH MCHC RDW Plt Count Retic Count 1.60 H Sodium Potassium Chloride Carbon Dioxide Anion Gap BUN Creatinine Est GFR ( Amer) Est GFR (Non-Af Amer) POC Glucose (mg/dL) 78 Random Glucose Calcium Iron TIBC % Saturation Ferritin 337.0 Total Bilirubin AST ALT Alkaline Phosphatase Troponin I Total Protein Albumin Globulin Albumin/Globulin Ratio Prostate Specific Ag 25-OH Vitamin D Total Urine Color Urine Appearance Urine pH Ur Specific [place] Urine Protein Urine Glucose (UA) Urine Ketones Urine Blood Urine Nitrate Urine Bilirubin Urine Urobilinogen Ur Leukocyte Esterase 04/08/18 04/08/18 04/08/18 11:30 11:30 11:30 WBC RBC Hgb Hct MCV MCH MCHC RDW Plt Count Retic Count Sodium Potassium Chloride Carbon Dioxide Anion Gap BUN Creatinine Est GFR ( Amer) Est GFR (Non-Af Amer) POC Glucose (mg/dL) Random Glucose Calcium Iron 49 TIBC 270 % Saturation 18 L Ferritin Total Bilirubin AST ALT Alkaline Phosphatase Troponin I < 0.01 D Total Protein Albumin Globulin Albumin/Globulin Ratio Prostate Specific Ag 1.4 25-OH Vitamin D Total 51.1 Urine Color Urine Appearance Urine pH Ur Specific [place] Urine Protein Urine Glucose (UA) Urine Ketones Urine Blood Urine Nitrate Urine Bilirubin Urine Urobilinogen Ur Leukocyte Esterase Assessment & Plan - Assessment and Plan (Free Text) Assessment: Patient is a 77yo Slovak-speaking male with PMHx significant for CAD s/p CABG and PCIx6, HTN, DM, chronic idiopathic constipation, BPH who presented to the ED with complaints of labile blood pressure and headache -Chronic normocytic anemia -CAD s/p CABG and PCIx6 -Chronic idiopathic constipation Plan: -Anemia relatively unchanged since 2013 -No overt GI blood loss at this time -Recommend endoscopic evaluation with EGD/colonoscopy once BP has become less labile and patient has cardiac optimization, can likely be performed outpatient -Patient is not taking Brilinta at this time which had previously been documented -Recommend hematologic work up given persistence despite iron supplementation -Add Miralax 17g PO QD as Linzess unavailable in house - Date & Time Date: 04/08/18 Time: 15:30 <Avril Dykes V - Last Filed: 04/09/18 00:23> Meds - Medications Medications: Current Medications Acetaminophen (Tylenol 325mg Tab) 650 mg PO Q6H PRN PRN Reason: Headache Aspirin (Ecotrin) 81 mg PO DAILY [facility] Last Admin: 04/08/18 09:21 Dose: 81 mg Atorvastatin Calcium (Lipitor) 40 mg PO DIN [facility] Last Admin: 04/08/18 17:44 Dose: 40 mg Enoxaparin Sodium (Lovenox) 40 mg SC DAILY [facility] PRN Reason: Protocol Last Admin: 04/08/18 09:23 Dose: 40 mg Insulin Human Regular (Humulin R Low) 0 units SC ACHS [facility] PRN Reason: Protocol Last Admin: 04/08/18 22:38 Dose: Not Given Losartan Potassium (Cozaar) 25 mg PO DAILY [facility] Last Admin: 04/08/18 09:22 Dose: 25 mg Metoprolol Succinate (Toprol Xl) 25 mg PO DAILY [facility] Last Admin: 04/08/18 09:21 Dose: 25 mg Mirtazapine (Remeron) 15 mg PO HS [facility] Last Admin: 04/08/18 22:38 Dose: 15 mg Non-Formulary Medication (Silodosin [Rapaflo]) 8 mg PO DAILY [facility] Last Admin: 04/08/18 09:23 Dose: Not Given Pantoprazole Sodium (Protonix Ec Tab) 40 mg PO 0600 [facility] Last Admin: 04/08/18 06:26 Dose: 40 mg Polyethylene Glycol (Miralax) 17 gm PO BID [facility] Tamsulosin HCl (Flomax) 0.4 mg PO DAILY [facility] Results - Vital Signs Recent Vital Signs: Last Vital Signs Temp 97.8 F 04/08/18 17:50 Pulse 68 04/08/18 18:00 Resp 20 04/08/18 17:50 BP 125/78 04/08/18 17:50 Pulse Ox 98 04/08/18 06:00 - Labs Result Diagrams: 04/08/18 06:30 04/08/18 06:30 Labs: Laboratory Results - last 24 hr 04/08/18 04/08/18 04/08/18 01:00 06:30 06:30 WBC 4.4 L RBC 3.31 L Hgb 10.0 L Hct 29.2 L MCV 88.2 MCH 30.2 MCHC 34.2 RDW 16.1 H Plt Count 159 Retic Count Sodium 136 Potassium 3.9 Chloride 101 Carbon Dioxide 24 Anion Gap 15 BUN 10 Creatinine 1.1 Est GFR ( Amer) > 60 Est GFR (Non-Af Amer) > 60 POC Glucose (mg/dL) Random Glucose 82 Calcium 9.6 Iron TIBC % Saturation Ferritin Total Bilirubin 1.0 AST 22 ALT 26 Alkaline Phosphatase 64 Troponin I 0.02 D Total Protein 6.7 Albumin 3.7 Globulin 3.0 Albumin/Globulin Ratio 1.2 Prostate Specific Ag Vitamin B12 25-OH Vitamin D Total Folate Urine Color Yellow Urine Appearance Clear Urine pH 6.0 Ur Specific [place] <= 1.005 Urine Protein Negative Urine Glucose (UA) Negative Urine Ketones Negative Urine Blood Negative Urine Nitrate Negative Urine Bilirubin Negative Urine Urobilinogen 0.2 Ur Leukocyte Esterase Negative 04/08/18 04/08/18 04/08/18 06:30 06:30 07:25 WBC RBC Hgb Hct MCV MCH MCHC RDW Plt Count Retic Count 1.60 H Sodium Potassium Chloride Carbon Dioxide Anion Gap BUN Creatinine Est GFR ( Amer) Est GFR (Non-Af Amer) POC Glucose (mg/dL) 78 Random Glucose Calcium Iron TIBC % Saturation Ferritin 337.0 Total Bilirubin AST ALT Alkaline Phosphatase Troponin I Total Protein Albumin Globulin Albumin/Globulin Ratio Prostate Specific Ag Vitamin B12 25-OH Vitamin D Total Folate Urine Color Urine Appearance Urine pH Ur Specific [place] Urine Protein Urine Glucose (UA) Urine Ketones Urine Blood Urine Nitrate Urine Bilirubin Urine Urobilinogen Ur Leukocyte Esterase 04/08/18 04/08/18 04/08/18 11:30 11:30 11:30 WBC RBC Hgb Hct MCV MCH MCHC RDW Plt Count Retic Count Sodium Potassium Chloride Carbon Dioxide Anion Gap BUN Creatinine Est GFR ( Amer) Est GFR (Non-Af Amer) POC Glucose (mg/dL) Random Glucose Calcium Iron 49 TIBC 270 % Saturation 18 L Ferritin 341.0 Total Bilirubin AST ALT Alkaline Phosphatase Troponin I < 0.01 D Total Protein Albumin Globulin Albumin/Globulin Ratio Prostate Specific Ag 1.4 Vitamin B12 796 25-OH Vitamin D Total 51.1 Folate > 20.0 Urine Color Urine Appearance Urine pH Ur Specific [place] Urine Protein Urine Glucose (UA) Urine Ketones Urine Blood Urine Nitrate Urine Bilirubin Urine Urobilinogen Ur Leukocyte Esterase 04/08/18 04/08/18 04/08/18 11:39 16:17 20:58 WBC RBC Hgb Hct MCV MCH MCHC RDW Plt Count Retic Count Sodium Potassium Chloride Carbon Dioxide Anion Gap BUN Creatinine Est GFR ( Amer) Est GFR (Non-Af Amer) POC Glucose (mg/dL) 97 119 H 193 H Random Glucose Calcium Iron TIBC % Saturation Ferritin Total Bilirubin AST ALT Alkaline Phosphatase Troponin I Total Protein Albumin Globulin Albumin/Globulin Ratio Prostate Specific Ag Vitamin B12 25-OH Vitamin D Total Folate Urine Color Urine Appearance Urine pH Ur Specific [place] Urine Protein Urine Glucose (UA) Urine Ketones Urine Blood Urine Nitrate Urine Bilirubin Urine Urobilinogen Ur Leukocyte Esterase Attending/Attestation - Attestation I have personally seen and examined this patient.: Yes I have fully participated in the care of the patient.: Yes I have reviewed all pertinent clinical information: Yes Notes (Text): This is an addendum to GI progress report dictated by the GI fellow.The patient was seen and examined earlier. Medical records, lab studies, imagings were reviewed. Last 24 hours events reviewed. 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
[2018-04-08 16:55] LABS: FOLATE > 20.0 ng/mL
--- NOTE | 2018-04-08 17:20 | CARD ---
APPROVED REPORT EKG Measurement Heart [id number] <Conclusion> Sinus rhythm with 1st degree AV block Otherwise normal ECG
--- NOTE | 2018-04-09 00:42 | CON ---
DATE: 04/08/2018 NEUROLOGY CONSULTATION CHIEF COMPLAINT: Headache. HISTORY OF PRESENT ILLNESS: This is a 77-year-old man with history of coronary artery disease, status post 6 stents, BPH, chronic insomnia, diabetes, IBS. He states that he has throbbing frontal parietal headache and was monitoring his blood pressures at home, which is ranged from 91/45 to 210/110 mm Hg. Did not loose any consciousness. Denies any changes in sense of vision, taste, or smell. He has lot of stress as well. He has poor in sleep hygiene and takes chronic Remeron to help him sleep daily. He states that he has been compliant with his blood pressure medications. He had an echocardiogram at that time showing an EF of 66% and carotid artery ultrasound showing 20 to 39% possible ICA stenosis anterior grade vertebral artery . Otherwise, his labs are unremarkable. He is walking around. His headaches are much better today. PAST MEDICAL HISTORY: As above. PAST SURGICAL HISTORY: Bilateral inguinal hernia repair. SOCIAL HISTORY: Denies any alcohol. Quit smoking 7 years ago. Denies any illicit drug use. FAMILY HISTORY: Noncontributory. MEDICATIONS: Reviewed by nurse per reconciliation sheet. REVIEW OF SYSTEMS: A 14-point review of systems negative except as per the HPI. LABORATORY DATA: Sodium is 136, potassium 3.9, chloride 101, carbon dioxide 24, BUN of 10, creatinine 1.1, random glucose of 82. PHYSICAL EXAMINATION: VITAL SIGNS: Temperature 98.7, pulse rate is 68, blood pressure 191/58, respiratory rate of 20. GENERAL: The patient is sitting up in the bed, in no acute distress. HEENT: Atraumatic and normocephalic. PERRLA. Extraocular muscles intact. NECK: Supple. No JVD. No adenopathy noted. LUNGS: Clear to auscultation. No adventitious sounds. HEART: S1, S2. Normal rate and rhythm. No murmurs, rubs or gallops. ABDOMEN: Soft, nontender and nondistended. Bowel sounds are present. EXTREMITIES: No clubbing. No cyanosis. Peripheral pulses 2+ felt bilaterally. NEUROLOGIC: The patient is alert and oriented to person, place, month and year. Speech is fluent without any errors. Cranial nerves II through XII are intact. Motor exam: Moves all extremities equally. Toes are downgoing bilaterally. Sensory exam: Light touch, pinprick, proprioception and vibration are intact. DTRs are 2+ throughout. Gait is normal. Coordination: [id number]-ld-csao intact. No dysmetria noted. ASSESSMENT AND PLAN: This is a 77-year-old man with past medical history of coronary artery disease, multiple stents, diabetes, benign prostatic hyperplasia, and chronic insomnia, on chronic Remeron, who presents to the ER with frontal parietal headache and labile blood pressures. His headache seems more likely a tension-based headache from fluctuating blood pressure changes in addition to chronic insomnia. At this time, we recommend; 1. Try to taper off as an outpatient his Remeron and advised the patient not to be taken it daily and recommend outpatient sleep study given to his chronic insomnia. 2. Fioricet 1 tab every 4 hours for acute onset of headache. 3. Keep his blood pressure between 130s to 140s systolic and diastolic 70s to 80s. 4. Keep blood sugars between 140 to 180 and avoid events of hyperglycemia. At this time, continue current present medical management. CAT scan of the head showed no acute intracranial abnormality. Thank you for this consult. Bridger Irving MD
[2018-04-09 02:47] LABS: BARBITURATES, UR NEGATIVE (NEGATIVE); BENZODIAZEPINES, UR NEGATIVE (NEGATIVE); OPIATES, UR NEGATIVE (NEGATIVE); PHENCYCLIDINE, UR NEGATIVE (NEGATIVE)
--- NOTE | 2018-04-09 03:06 | CON ---
DATE: 04/08/2018 LOCATION: Patient in room 271, bed 2. REASON FOR CONSULTATION: Coronary artery disease, hypertension, headache. HISTORY OF PRESENT ILLNESS: A 77-year-old male who known to have coronary artery disease, who had Code STEMI on 02/11/[address] [place] and at that time angioplasty and stent was put in the circumflex coronary artery, later on staged coronary angioplasty stent was done in RCA on 02/28/2016. Patient known to have hypertension, BPH, admitted with the history, at home, he was also having frontal headaches and his blood pressure was fluctuating, one time it was 91/45, other time, it was 200/110. Patient denies any chest pain, shortness of breath or palpitation. No nausea or vomiting. Patient had carotid ultrasound on 03/18/2018, showed 20% to 39% bilateral proximal ICA stenosis. Patient also had echo on 03/18/2018, it was normal LV function, normal LV size, ejection fraction 65%, pbppb-ly-wogg aortic regurgitation, [id number]-av-[id number] calcific aortic stenosis, [id number]-ym-uoaqdhsj mitral regurgitation, svvqh-jb-lcfz tricuspid regurgitation. Last stress test was on 09/20/2016, which was normal with normal ejection fraction of 67%. PAST MEDICAL HISTORY: Positive for coronary artery disease, ST-elevation myocardial infarction, status post stent insertion, hypertension, diabetes, BPH, IBS, bilateral inguinal hernia repair. PERSONAL HISTORY: Patient denies drinking, used to smoke before, but stopped smoking about 7 years ago. ALLERGIES: DENIES ALLERGIES. LIST OF HOME MEDICATIONS: Patient was on Glucophage XR 750 p.o. daily, Neurontin 300 mg b.i.d., Lipitor 40 daily, aspirin 81 daily, Brilinta 90 mg b.i.d., Rapaflo 8 mg p.o. daily, Remeron 50 mg p.o. at bedtime, metoprolol succinate 25 mg p.o. daily, losartan 25 mg daily, Linzess 145 mcg p.o. daily. REVIEW OF SYSTEMS: All the systems reviewed and positive mentioned in the history, others are negative. FAMILY HISTORY: Not significant. PHYSICAL EXAMINATION: VITAL SIGNS: Blood pressure 139/74, respirations 20, pulse 63, patient is afebrile. HEENT: Head: Normocephalic. Eyes: Pupils normal. Conjunctivae slightly pale. NECK: JVP low. Carotids equal. THORAX: AP diameter normal. LUNGS: Clear. CARDIOVASCULAR: S1 and S2. ABDOMEN: Soft. Bowel sound normal. EXTREMITIES: No clubbing. No cyanosis. LABORATORY DATA: WBC 4.4, hemoglobin 10, hematocrit 29.2, platelet 159. Sodium 136, potassium 3.9, BUN 10, creatinine 1.1. AST, ALT normal. Troponin x2 negative. Total protein, albumin normal. PSA 1.4. TSH 0.45, free T3 normal 3.09, free T4 normal 1.14. DIAGNOSTIC DATA: EKG showed regular sinus rhythm, HI prolonged, nonspecific ST-T changes. Chest x-ray, no active disease. CAT scan of the head, no acute intracranial abnormalities. Carotid ultrasound on 03/18/2018, 20% to 39% bilateral proximal ICA stenosis. Stress test on 09/20/2016, normal with ejection fraction of 67%. Last echo on 03/18/2018, normal LV size, normal LV, ejection fraction 65%, owweb-rp-ofkc aortic regurgitation, qddx-qd-yuzlswpb aortic stenosis, ykil-br-hitvbnka mitral regurgitation, qbfzz-wv-fkqm tricuspid regurgitation, acute TN, ST-elevation TN on 02/11/2016, had angioplasty and stent in circumflex coronary artery and then in 02/27 staged PTCA of RCA was done with stent insertion. DIAGNOSES: Uncontrolled hypertension, headache, coronary artery disease, history of angioplasty and stent insertion, diabetes mellitus, benign prostatic hypertrophy, irritable bowel syndrome, anemia. PLAN: Patient is on losartan 25 mg daily, aspirin 81 mg daily, Lipitor 40 mg p.o. daily, Lovenox 40 mg subcu daily, Protonix 40 daily, Remeron 50 mg p.o. at bedtime, Rapaflo 8 mg p.o. daily. Patient is also getting IV fluid, metoprolol succinate 25 mg p.o. daily. We will monitor the patient and we will continue present therapy and we will follow with you. We will also check lipid profile in the morning. CBC also requested in the morning. We will follow with you. Karthik Ennis MD
[2018-04-09 06:24] VITALS: TEMP 97.6; O2SAT 95
[2018-04-09 06:28] LABS: HEMOGLOBIN 10.2 g/dL (14.0-18.0); MEAN CORPUSCULAR HEMOGLOBIN 30.3 pg (25.0-35.0); PLATELET COUNT 152 10^3/uL (120.0-450.0); RBC 3.37 10^6/uL (3.5-6.1); RED CELL DISTRIBUTION WIDTH 16.8 % (11.5-14.5); WHITE BLOOD COUNT 5.2 10^3/ul (4.5-11.0)
[2018-04-09] MEDS: Pantoprazole 40 mg EC Tab PO SCH (06:41)
--- NOTE | 2018-04-09 06:59 | PN ---
DATE: 04/08/2018 SUBJECTIVE: The patient is seen in room 275, bed 2. The patient was lying in the bed. The patient was made to sit up. The entire translation examination and details were discussed with the patient via the video hand assembler. Overnight nurse's notes were reviewed. PHYSICAL EXAMINATION: VITAL SIGNS: T-max is 98.1-97.8. Telemetry monitoring shows sinus rhythm with questionable first degree AV block. His blood pressure 125/98, 125/78, 91/58, 139/74, 152/89, 161/98, 173/94, 138/76, respiration 20, O2 sat is 98-100%. HEENT: Head examination is normocephalic, atraumatic. HEENT examination shows pinkish pale conjunctivae. Anicteric sclerae. No oropharyngeal lesion. No neck rigidity. CHEST: Symmetrical. LUNGS: Shows no rales, crackles or wheezing. CARDIOVASCULAR: S1, S2, regular rhythm. Questionable soft systolic murmur, left sternal border, right second intercostal space, left second intercostal space. ABDOMEN: Soft. Positive bowel sound. GENITALIA: Male. RECTAL: Deferred. EXTREMITIES: Shows no pitting edema, no calf tenderness, no Homans' sign. NEUROLOGIC: The patient is alert, awake, oriented x3. Cranial nerves II-XII intact. Gait examination is not tested. Motor strength is 5/5. VASCULAR: Palpable pulses. MUSCULOSKELETAL: Shows a body mass index of 29.3. DIAGNOSTICS: On 04/08/2018: WBC 4.4, hemoglobin/hematocrit 10 and 29.2, platelet 159. Sodium 136, potassium 3.9, chloride 101, CO2 of 24, anion gap 15, BUN 10, creatinine 0.1, GFR greater than 60, glucose 82, hemoglobin A1c 5.8, calcium 9.6, iron 49, TIBC 270, saturation of 18, ferritin level 341, 337. LFTs are normal. Troponin 3 sets are negative. Cholesterol 72, triglyceride 74, LDL less than 30, HDL 36. PSA 1.4. B12 of 796. Vitamin D 25-hydroxy 51. The patient's available diagnostic data was reviewed. The patient has been ordered an MRI of the brain, abdominal pelvic ultrasound, CAT scan for evaluation of anemia. The patient is still awaiting Cardiology, Neurology and Gastroenterology evaluation which has been requested. IMPRESSION AND PLAN 1. Uncontrolled hypertension, symptomatic with symptoms of headache and uncontrolled hypertension versus hypertensive urgency. 2. Episodic hypotension. 3. Near syncope. 4. Pnt-ihyliad-zystceufd diabetes mellitus. 5. Transient hyponatremia. 6. Questionable first degree atrioventricular block. 7. Normocytic anemia with leukopenia. 8. Elevated reticulocyte count. 9. Questionable iron deficiency. 10. Transient hyponatremia. 11. History of multivessel coronary disease. 12. History of myocardial infarction and multiple stent placement. 13. Basilar atelectasis. 14. Cardiomegaly. 15. Hiatal hernia with distal esophageal wall thickening with gastric mucosal protrusion versus esophagitis. 16. Pancreatic fatty replacement and atrophy. 17. Bilateral renal cyst. 18. Urinary bladder wall thickening and distention. 19. Prostatomegaly. 20. Prostatic calcification. 21. Incomplete gastric distention. 22. Questionable gastritis. 23. Fecal retention. 24. Fat-containing umbilical hernia and bilateral inguinal hernia. 25. Nonspecific retroperitoneal and mesenteric lymphadenopathy. 26. Bilateral proximal iliac artery dilatation. 27. 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 28. 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 29. Chronic lacunar infarcts of the brain. 30. Cerebral cortical atrophy of the brain with thinning of the corpus callosum. 31. Status post left cataract surgery. 32. Constipation. PLAN: At this time, the patient has been ordered a repeat CBC and CMP for the morning. Cardiology consultation, Gastroenterology consultation and Neurology consultation is pending. CURRENT MEDICATIONS: Cozaar 25 mg daily, Ecotrin 81 mg daily, Humulin low-dose sliding scale coverage before lunch and at bedtime. The patient will be continued on Linzess 145 mcg daily or MiraLax 17 g twice a day for constipation. The patient is also on Lipitor 40 mg daily, Lovenox 40 subcu daily for DVT prophylaxis. Remeron 15 mg at bedtime, Rapaflo 8 mg daily. The patient is on Toprol XL 25 mg daily, Tylenol 650 every 6 hours p.r.n. The patient was recently admitted a week or two ago for syncope. At that time, Neurology recommended EEG. The patient has been ordered heart-healthy diet, out of bed, SANDRA stockings, SCDs, occupational therapy, physical therapy ordered. Stool occult blood ordered. The patient is to be referred to physical therapist.. The patient's case has been referred to Transitional Care Unit evaluation. The patient's further management will be dependent upon the patient's clinical condition, hemodynamic status and as per the patient's response to therapeutic intervention, as per the patient's diagnostic test results and as per recommendation by Cardiology, Neurology and Gastroenterology. As mentioned above, I have met with the patient, with medical residents and all the discussion and explanation were done via the video conferencing translation system which the patient acknowledged and understood.. All questions concerned management plan, treatment plan was explained to the patient via the video translation services. All questions concerned answered to the patient's satisfaction. Dictated and electronically signed, not read. Rome Powers MD
[2018-04-09 07:24] LABS: ALB/GLOB RATIO 1.1 (1.1-1.8); ALBUMIN 3.6 g/dL (3.0-4.8); ALT/SGPT 27 U/L (7-56); AST/SGOT 21 U/L (17-59); BLOOD UREA NITROGEN 14 mg/dL (7-21); CALCIUM 9.4 mg/dL (8.4-10.5); GFR AFRICAN-AMERICAN > 60; GFR NON-AFRICAN AMERICAN 53; HDL CHOLESTEROL 34 mg/dL (29-60)
[2018-04-09 07:47] LABS: LDL CHOLESTEROL < 30 mg/dL (0-129)
[2018-04-09] MEDS: Insulin Reg-LOW-Coverage SC SCH ×2 (08:00→12:00)
--- NOTE | 2018-04-09 08:10 | HP ---
ADDENDUM DATE: 04/08/2018 The patient was seen and examined. The patient's vital signs and diagnostic data are reviewed. Please refer to the detailed history and physical examination done by the medical record specialist from 04/07. The patient's past medical history, medical history, and medical examination done. IMPRESSION: 1. Questionable and possible uncontrolled hypertension and episodic hypotension. 2. Weakness, lightheadedness and dizziness, questionable near syncope. 3. Normocytic anemia and leukopenia. 4. Mild hyponatremia. 5. Cerebral cortical atrophy of the brain and small vessel ischemic disease of the brain. 6. Questionable first degree atrioventricular block. 7. History of coronary artery disease, history of ST elevation myocardial infarction, angioplasty and stent placement, history of hypertension, history of prostatic hypertrophy, history of diabetes mellitus, history of bilateral inguinal herniorrhaphy. 8. Headache, probably secondary to uncontrolled hypertension. 9. History of anemia. 10. Iron-deficiency anemia. 11. Cdw-wmyjgra-yumrrwbxp diabetes mellitus. 12. Chronic microangiopathic disease of the brain. 13. Cerebral cortical atrophy of the brain. 14. History of renal cyst. 15. Cervical spine degenerative disk disease and foraminal narrowing. 16. Grade III reversible restrictive diastolic dysfunction of the heart. 17. Moderate valvular aortic stenosis. 18. Questionable near syncope. 19. History of hyperlipidemia. 20. History of diabetic neuropathy. 21. History of insomnia. 22. History of constipation. PLAN: At this time, the patient is admitted to [facility] Telemetry. The patient has been ordered iron studies. Repeat CMP has been ordered. Repeat Cardiology and Neurology consultation ordered. Current medications are Cozaar 25 mg daily, Ecotrin 81 mg daily, Humalog low-dose sliding scale coverage a.c. and h.s., Linzess 145 mcg daily, Lipitor 40 mg daily, Lovenox 40 mg subcu daily, Protonix 40 mg daily, Remeron 15 mg at bedtime, Rapaflo 8 mg daily, IV fluid was discontinued, Toprol-XL 25 mg daily, and Tylenol p.r.n. Repeat EKG ordered. Heart-healthy diet, out of bed, SANDRA stockings, SCDs, occupational therapy, and physical therapy ordered. At present, the patient will be continued to be treated on telemetry till further neurological cardiology intervention and recommendations. We may consider GI evaluation depending upon the patient's anemia testing. The patient may require GI evaluation if we are unable to find explanation about his anemia. The patient's condition, diagnosis, need for further diagnostic therapeutic intervention, need for further treatment was discussed and explained to the patient via the video translating system at the bedside. Dictated and electronically signed, not read. Rome Powers MD
--- NOTE | 2018-04-09 08:39 | PN ---
DATE: 04/09/2018 SUBJECTIVE: This patient is admitted under the care of Dr. Rome Powers. I am covering for him today. The patient is a 77-year-old Estonian male. He was admitted with a history of dizziness and weakness. The patient also had elevated blood pressure when evaluated in the emergency room. The patient has significant past history. He has history of cataracts. The patient has history of benign prostatic hyperplasia, diabetes mellitus, hypertension. The patient also has history of insomnia. The patient is seen this morning with inability to converse with him because he does not have knowledge of much Setswana, but he is pending an EEG examination today. His videotape editor is Dr. Gutierrez. Dr. Karthik Gutierrez is the hospice rn. The patient's primary care physician is Dr. Turner, he has an office in [place]. PHYSICAL EXAMINATION: VITAL SIGNS: Pulse is 69, blood pressure is 107/59, the patient's respirations are 20, O2 sat is 95% on room air. HEENT: The patient's head is normocephalic. Carotid pulses are present. LUNGS: Trachea central. Breath sounds are vesicular. No adventitious sounds. HEART: Normal sinus rhythm. S1, S2 present. ABDOMEN: Soft. Liver and spleen not palpable. COOK [place]: No focal deficits are noted at this time. ASSESSMENT AND PLAN: The patient had neurological evaluation by and the patient has had an MRI and awaiting an EEG as mentioned. The patient is currently being treated. He is clinically stable at this time. He needs evaluation by physical therapy. The patient's medications consist of losartan 25 mg daily, aspirin 81 mg daily, Flomax 0.4 mg daily. The patient is on insulin coverage for diabetes, Lipitor 40 mg daily. The patient is on Lovenox 40 mg subcutaneous for prophylaxis. The patient is also getting pantoprazole for reflux esophagitis. The patient also gets Remeron 15 mg at bedtime to sleep and heart-healthy diet. We will continue current management, follow up. The patient's condition is improving and his overall prognosis appears to be good. Diego Hughes MD
[2018-04-09] MEDS ORDERED: POLYETHYLENE GLYCOL 3350 17 GM/Dose PACKET PO SCH ×2 (10:00)
[2018-04-09 10:09] LABS: TROPONIN I < 0.01 ng/mL
[2018-04-09] MEDS: Enoxaparin 40 mg Syringe SC SCH (10:12)
--- NOTE | 2018-04-09 10:56 | PN ---
DATE: 04/09/2018 REASON FOR CONSULTATION: Coronary artery disease, hypertension, headache. SUBJECTIVE: The patient denies any chest pain, shortness of breath or any palpitation. The patient is not in any apparent distress. PHYSICAL EXAMINATION: VITAL SIGNS: Temperature afebrile, heart rate 69, blood pressure 107/59. HEENT: PERRLA. Extraocular muscles intact. NECK: Supple. No carotid bruit. No thyromegaly. CHEST: Clear to auscultation. HEART: S1 and S2 regular. ABDOMEN: Soft. EXTREMITIES: Clubbing and cyanosis negative. LABORATORY DATA: Blood workup as follows; WBC 5.8, hemoglobin 10.8, hematocrit 30, platelet count 152. Chemistry shows sodium 130, potassium 4, chloride 104, carbon dioxide 23, anion gap of 15, BUN 15, creatinine 1.3. IMPRESSION: A 77-year-old male with past medical history significant for coronary artery disease, status post multiple stent. Admitted with dizziness and uncontrolled hypertension, admitting blood pressure 174/84, now the pressure is well controlled. The patient underwent MRI of the brain. No acute intracranial pathology or hemorrhage noted. Chronic white matter changes. Moderate central volume loss. History of multiple stents in the past. History of lzi-RN-eyfdzrntv myocardial infarction, history of code ST-elevation myocardial infarction on 02/11/2016. Last stress test on 09/20/2016 was normal. RECOMMENDATIONS: We will discontinue telemetry. Continue ramipril. Continue losartan. Continue aspirin. Continue atorvastatin. Continue DVT prophylaxis. We will follow with you. The patient is relatively stable. Aggressive control of blood pressure, lifestyle modification. Risk factor coronary artery disease. Upon discharge, follow up in the office. Thank you, Dr. Powers for providing us the opportunity in taking care of the patient, Dima Holguin. Karthik Gutierrez MD
[2018-04-09] MEDS: Metoprolol Succinate 25 mg XL Tab PO SCH (12:41)
[2018-04-09 12:42] VITALS: BP 101/58; PULSE 71
--- NOTE | 2018-04-09 13:44 | CP.PCM.PN ---
Subjective - Date & Time of Evaluation Date of Evaluation: 04/09/18 Time of Evaluation: 08:45 - Subjective Subjective: PGY6 GI Fellow Progress Note Patient seen and examined bedside this morning. The patient states that he is feeling well and has no new complaints. No episodes overnight. No longer c/o headache. No overt signs of GI blood loss noted. 12 system ROS performed and negative except where stated. Objective - Vital Signs/Intake and Output Vital Signs (last 24 hours): Temp Pulse Resp BP Pulse Ox 97.6 F 71 20 101/58 L 95 04/09/18 06:00 04/09/18 12:41 04/09/18 06:00 04/09/18 12:41 04/09/18 06:00 Intake and Output: 04/09/18 04/09/18 06:59 18:59 Intake Total 920 Output Total 300 Balance 620 - Medications Medications: Current Medications Acetaminophen (Tylenol 325mg Tab) 650 mg PO Q6H PRN PRN Reason: Headache Aspirin (Ecotrin) 81 mg PO DAILY [facility] Last Admin: 04/09/18 10:11 Dose: 81 mg Atorvastatin Calcium (Lipitor) 40 mg PO DIN [facility] Last Admin: 04/08/18 17:44 Dose: 40 mg Enoxaparin Sodium (Lovenox) 40 mg SC DAILY RAULITO PRN Reason: Protocol Last Admin: 04/09/18 10:12 Dose: 40 mg Insulin Human Regular (Humulin R Low) 0 units SC ACHS [facility] PRN Reason: Protocol Last Admin: 04/09/18 12:00 Dose: Not Given Losartan Potassium (Cozaar) 25 mg PO DAILY [facility] Last Admin: 04/09/18 10:15 Dose: Not Given Metoprolol Succinate (Toprol Xl) 25 mg PO DAILY [facility] Last Admin: 04/09/18 12:41 Dose: Not Given Mirtazapine (Remeron) 15 mg PO HS PRN PRN Reason: Insomnia Non-Formulary Medication (Silodosin [Rapaflo]) 8 mg PO DAILY [facility] Last Admin: 04/09/18 10:15 Dose: Not Given Pantoprazole Sodium (Protonix Ec Tab) 40 mg PO 0600 [facility] Last Admin: 04/09/18 06:41 Dose: 40 mg Polyethylene Glycol (Miralax) 17 gm PO BID [facility] Last Admin: 04/09/18 10:12 Dose: 17 gm Tamsulosin HCl (Flomax) 0.4 mg PO DAILY RAULITO Last Admin: 04/09/18 10:11 Dose: 0.4 mg - Labs Labs: 04/09/18 06:00 04/09/18 06:00 PT 12.4 SECONDS (9.4-12.5) 04/07/18 21:23 INR 1.09 (0.93-1.08) H 04/07/18 21:23 APTT 33.7 Seconds (25.1-36.5) 04/07/18 21:23 - Constitutional Appears: Non-toxic, No Acute Distress - Eye Exam Eye Exam: EOMI, PERRL - ENT Exam ENT Exam: Mucous Membranes Moist - Respiratory Exam Respiratory Exam: Clear to Ausculation Bilateral. absent: Rales, Rhonchi, Wheezes - Cardiovascular Exam Cardiovascular Exam: RRR, +S1, +S2 - GI/Abdominal Exam GI & Abdominal Exam: Soft, Normal Bowel Sounds. absent: Distended, Firm, Guarding, Rigid, Tenderness, Organomegaly - Extremities Exam Extremities Exam: Normal Inspection. absent: Pedal Edema - Neurological Exam Neurological Exam: Alert, Awake, Oriented x3 - Psychiatric Exam Psychiatric exam: Normal Affect, Normal Mood - Skin Skin Exam: Dry, Warm Assessment and Plan - Assessment and Plan (Free Text) Assessment: Patient is a 77yo Telugu-speaking male with PMHx significant for CAD s/p CABG and PCIx6, HTN, DM, chronic idiopathic constipation, BPH who presented to the ED with complaints of labile blood pressure and headache -Chronic normocytic anemia -CAD s/p CABG and PCIx6 -Chronic idiopathic constipation Plan: -HGB stable -Recommend elective outpatient evaluation for EGD/Colonoscopy once acute issues resolved to further evaluate unexplained anemia -Would benefit from hematologic evaluation -Continue Iron supplementation -No overt GI blood loss noted -Miralax 17g PO QD as Linzess unavailable in house
[2018-04-09 14:24] VITALS: RESP 18
== END 2018-04-09 16:12 | disposition home or self-care (01) ==
LOC: ED 19:55 → ERH 22:32 → 2RSO 04-08 01:55
PROVIDERS: ADMIT Internal Medicine; ATTEND Internal Medicine
DX: I25.10 Atherosclerotic heart disease of native coronary artery without angina pectoris (principal); I10 Essential (primary) hypertension; N40.0 Benign prostatic hyperplasia without lower urinary tract symptoms; E87.1 Hypo-osmolality and hyponatremia; D50.9 Iron deficiency anemia, unspecified; I35.0 Nonrheumatic aortic (valve) stenosis; E11.40 Type 2 diabetes mellitus with diabetic neuropathy, unspecified; G47.00 Insomnia, unspecified; K59.04 Chronic idiopathic constipation; K58.9 Irritable bowel syndrome, unspecified; F51.04 Psychophysiologic insomnia; M47.814 Spondylosis without myelopathy or radiculopathy, thoracic region; K21.0 Gastro-esophageal reflux disease with esophagitis; E78.5 Hyperlipidemia, unspecified; I65.23 Occlusion and stenosis of bilateral carotid arteries; I25.2 Old myocardial infarction; Z95.5 Presence of coronary angioplasty implant and graft; Z95.1 Presence of aortocoronary bypass graft; Z98.42 Cataract extraction status, left eye; Z87.891 Personal history of nicotine dependence
CPT/HCPCS: 36415; 70450; 70551; 71045; 74176; 80053; 80061; 81003; 82306; 82550; 82607; 82668; 82728; 82746; 82948; 83036; 83540; 83550; 83615; 83690; 84153; 84439; 84443; 84481; 84484; 85025; 85027; 85044; 85610; 85730; 93005; 95812; 96372; 97116; 97162; 97530; 99285; G0378; G0480; G8978; G8979; J1650; J7030

== ENCOUNTER 2018-10-12 10:56 | Emergency (ER) | payer MEDICARE, OTHER ==
[2018-10-12 10:56] VITALS: BMI 29.8
[2018-10-12 11:13] VITALS: TEMP 98.2; O2SAT 99
--- NOTE | 2018-10-12 12:05 | ED PDOC ---
Arrival/HPI - General Chief Complaint: Groin Pain Time Seen by Provider: 10/12/18 11:17 Historian: Patient, Family (daughter) - History of Present Illness Narrative History of Present Illness (Text): 10/12/18 12:06 78-year-old male presents today with a one-week history of right buttocks pain. Patient states the pain starts in the buttocks and radiates into the groin. Patient states he was seen by his primary care physician and given a prescription for a pain patch but was unable to fill the pain patch due to issues with insurance. Patient denies numbness weakness or tingling in the extremity. No fevers or chills. Patient states the pain is a burning and sharp pain located right on the buttocks. Patient denies testicular pain no urinary symptoms. No abdominal pain. No dizziness or weakness. No other complaints. Time/Duration: 1 week Symptom Onset: Gradual Symptom Course: Worsening Quality: Aching, Stabbing, Burning Severity Level: Moderate Past Medical History - Provider Review Nursing Documentation Reviewed: Yes - Travel History Have you recently traveled outside [place] w/in the past 3 mons?: No - Past History Past History: Non-Contributing - Infectious Disease Hx of Infectious Diseases: None - Tetanus Immunization Tetanus Immunization: Unknown - Cardiac Hx Hypertension: Yes - Pulmonary Hx Respiratory Disorders: No - Neurological Hx Neurological Disorder: No - HEENT Hx HEENT Disorder: Yes Hx Cataracts: Yes (leanna sx) - Renal Hx Kidney Stones: Yes - Endocrine/Metabolic Hx Diabetes Mellitus Type 2: Yes - Hematological/Oncological Hx Blood Disorders: No - Integumentary Hx Dermatological Disorder: No - Musculoskeletal/Rheumatological Hx Falls: No - Gastrointestinal Hx Gastroesophageal Reflux: Yes - Genitourinary/Gynecological Hx Prostate Problems: Yes - Psychiatric Hx Depression: No Hx Emotional Abuse: No Hx Physical Abuse: No Hx Substance Use: No - Surgical History Hx Cardiac Catheterization: Yes Hx Coronary Stent: Yes (x3) - Anesthesia Hx Anesthesia Reactions: No - Suicidal Assessment Feels Threatened In Home Enviroment: No Family/Social History - Physician Review Nursing Documentation Reviewed: Yes Family/Social History: Unknown Family HX Smoking Status: Former Smoker Hx Alcohol Use: No Hx Substance Use: No Hx Substance Use Treatment: No Allergies/Home Meds Allergies/Adverse Reactions: Allergies No Known Allergies Allergy (Verified 04/07/18 20:15) Home Medications: Home Meds Medication Instructions Recorded Confirmed Metoprolol Succinate 25 mg PO DAILY 01/06/14 04/07/18 Gabapentin [Neurontin] 300 mg PO BID 02/13/16 04/07/18 Mirtazapine [Remeron] 15 mg PO HS 02/13/16 10/12/18 Linaclotide [Linzess] 145 mcg PO DAILY 09/20/16 10/12/18 Losartan Potassium 25 mg PO DAILY 03/16/18 04/07/18 MetFORMIN ER [Glucophage XR] 750 mg PO DAILY 03/16/18 04/07/18 Saxagliptin HCl [Onglyza] 5 mg PO DAILY 03/16/18 10/12/18 Silodosin [Rapaflo] 8 mg PO DAILY 03/16/18 10/12/18 Colchicine [Colcrys] 1 mg PO 10/12/18 Review of Systems - Review of Systems Constitutional: absent: Fatigue, Fevers Respiratory: absent: SOB, Cough Cardiovascular: absent: Chest Pain, Palpitations Gastrointestinal: absent: Abdominal Pain, Constipation, Diarrhea, Nausea, Vomiting Genitourinary Male: absent: Dysuria, Frequency, Hematuria Musculoskeletal: Arthralgias Skin: Rash Neurological: absent: Headache, Dizziness Psychiatric: absent: Anxiety, Depression Physical Exam Vital Signs Reviewed: Yes Vital Signs Temp Pulse Resp BP Pulse Ox 10/12/18 11:08 98.2 F 81 18 115/73 99 Temperature: Afebrile Blood Pressure: Normal Pulse: Regular Respiratory Rate: Normal Appearance: Positive for: Well-Appearing, Non-Toxic, Comfortable Pain Distress: None Mental Status: Positive for: Alert and Oriented X 3 - Systems Exam Head: Present: Atraumatic Mouth: Present: Moist Mucous Membranes Neck: Present: Normal Range of Motion Respiratory/Chest: Present: Clear to Auscultation, Good Air Exchange. No: Respiratory Distress, Accessory Muscle Use Cardiovascular: Present: Regular Rate and Rhythm, Normal S1, S2. No: Murmurs Abdomen: No: Tenderness, Distention, Peritoneal Signs, Rebound, Guarding Genitourinary Male: Present: Normal External Genitalia, Circumcised Penis, Other (NO RASH). No: Testicle Tenderness, Testicle Swelling Back: No: Normal Inspection (there is a large area of erythema with multiple vesicles noted along the right buttock approx along the L5/S1-S2 dermatomes.), Midline Tenderness, Paraspinal Tenderness Upper Extremity: Present: Normal ROM, Neurovascularly Intact Lower Extremity: Present: Normal Inspection, Normal ROM, Neurovascularly Intact Neurological: Present: GCS=15, Speech Normal Skin: Present: Warm, Dry, Normal Color Psychiatric: Present: Alert, Oriented x 3 Medical Decision Making ED Course and Treatment: 10/12/18 12:19 78yr old male with back pain and rash worsening over 1 week. pt found to have shingles rash to right buttock cheek; no rash noted to groin or scrotum. full rom of all extremities. pt started on valtrex; tylenol given for pain. pt advised to f/u with PMD and take medications as prescribed. pt advised immediate return if symptoms worsen,persist or if new symptoms develop. Patient verbalizes understanding of discharge instructions and need for immediate followup. all aspects of this case were discussed the attending of record. Impression: Herpes zoster Tylenol every 4 hours as needed for pain Valtrex 1 tablet 3 times daily 7 days Follow-up with primary care physician within the next 2 days Avoid women and children Return immediately if symptoms worsen persist or if new concerning symptoms develop - Medication Orders Current Medication Orders: Discontinued Medications Acetaminophen (Tylenol 325mg Tab) 975 mg PO STAT STA Stop: 10/12/18 11:37 Valacyclovir HCl (Valtrex) 1 gm PO STAT STA; Protocol Stop: 10/12/18 11:37 Disposition/Present on Arrival - Present on Arrival Any Indicators Present on Arrival: Yes History of DVT/PE: No History of Uncontrolled Diabetes: Yes Urinary Catheter: No History of Decub. Ulcer: No History Surgical Site Infection Following: None - Disposition Have Diagnosis and Disposition been Completed?: Yes Diagnosis: Herpes zoster Disposition: HOME/ ROUTINE Disposition Time: 11:45 Patient Plan: Discharge Condition: GOOD Discharge Instructions (ExitCare): Shingles (ED) Additional Instructions: Tylenol every 4 hours as needed for pain Valtrex 1 tablet 3 times daily 7 days Follow-up with primary care physician within the next 2 days Avoid women and children Return immediately if symptoms worsen persist or if new concerning symptoms develop Prescriptions: valACYclovir [Valtrex] 1 gm PO TID #21 tab Referrals: Sean Mak MD [Medical Doctor] - Follow up with primary
[2018-10-12 13:01] VITALS: BP 120/77; PULSE 80; RESP 20
== END 2018-10-12 13:00 | disposition home or self-care (01) ==
LOC: ED 10:56
DX: B02.9 Zoster without complications (principal)

== ENCOUNTER 2019-02-02 12:50 | Emergency (ER) | payer MEDICARE, OTHER ==
[2019-02-02 12:50] VITALS: BMI 29.8
[2019-02-02 13:01] VITALS: RESP 18; TEMP 98; O2SAT 98
[2019-02-02] MEDS ORDERED: Lidocaine 1% Inj (20ml) IV STA (13:23)
[2019-02-02] MEDS ORDERED: Lidocaine 1% Inj (20ml) IJ STA (13:24)
[2019-02-02] MEDS ORDERED: Lidocaine 1% Inj (20ml) ONE (13:30)
--- NOTE | 2019-02-02 13:30 | ED PDOC ---
Arrival/HPI - General Chief Complaint: Male Genitourinary Time Seen by Provider: 02/02/19 12:51 Historian: Patient, Family - History of Present Illness Narrative History of Present Illness (Text): 02/02/19 13:31 A 78 year old male, whose past medical history includes hernia, hypertension, and diabetes type 2, who is accompanied by family, presents to the emergency department complaining of testicular pain for 1 week. Patient reports he believes the pain is being caused by the hernia he has. Patient has not gone to see his PMD. Family notes patient also experiencing passing of gas. Patient denies any fever, nausea, vomiting, or any other complaints at this time. Time/Duration: 1 week Past Medical History - Provider Review Nursing Documentation Reviewed: Yes - Past History Past History: Non-Contributing - Infectious Disease Hx of Infectious Diseases: None - Tetanus Immunization Tetanus Immunization: Unknown - Cardiac Hx Hypertension: Yes - Pulmonary Hx Respiratory Disorders: No - Neurological Hx Neurological Disorder: No - HEENT Hx HEENT Disorder: Yes Hx Cataracts: Yes (leanna sx) - Renal Hx Kidney Stones: Yes - Endocrine/Metabolic Hx Diabetes Mellitus Type 2: Yes - Hematological/Oncological Hx Blood Disorders: No - Integumentary Hx Dermatological Disorder: No - Musculoskeletal/Rheumatological Hx Falls: No - Gastrointestinal Hx Gastroesophageal Reflux: Yes - Genitourinary/Gynecological Hx Prostate Problems: Yes - Psychiatric Hx Depression: No Hx Emotional Abuse: No Hx Physical Abuse: No Hx Substance Use: No - Surgical History Hx Cardiac Catheterization: Yes Hx Coronary Stent: Yes (x3) - Anesthesia Hx Anesthesia: Yes Hx Anesthesia Reactions: No Hx Malignant Hyperthermia: No - Suicidal Assessment Feels Threatened In Home Enviroment: No Family/Social History - Physician Review Nursing Documentation Reviewed: Yes Family/Social History: No Known Family HX Smoking Status: Former Smoker Hx Alcohol Use: No Hx Substance Use: No Hx Substance Use Treatment: No Allergies/Home Meds Allergies/Adverse Reactions: Allergies No Known Allergies Allergy (Verified 02/02/19 13:01) Home Medications: Home Meds Medication Instructions Recorded Confirmed Metoprolol Succinate 25 mg PO DAILY 01/06/14 02/02/19 Mirtazapine [Remeron] 15 mg PO HS 02/13/16 02/02/19 Linaclotide [Linzess] 145 mcg PO DAILY 09/20/16 02/02/19 Saxagliptin HCl [Onglyza] 5 mg PO DAILY 03/16/18 02/02/19 Silodosin [Rapaflo] 8 mg PO DAILY 03/16/18 02/02/19 Sertraline HCl [Zoloft] 1 tab PO DAILY 02/02/19 02/02/19 Review of Systems - Physician Review All systems were reviewed & negative as marked: Yes - Review of Systems Constitutional: absent: Fevers Gastrointestinal: absent: Nausea, Vomiting Genitourinary Male: Other (testicular pain) Physical Exam Vital Signs Reviewed: Yes Vital Signs Temp Pulse Resp BP Pulse Ox 02/02/19 12:55 98 F 79 18 123/80 98 Temperature: Afebrile Blood Pressure: Normal Pulse: Regular Respiratory Rate: Normal Appearance: Positive for: Well-Appearing, Non-Toxic, Comfortable Pain Distress: None Mental Status: Positive for: Alert and Oriented X 3 - Systems Exam Respiratory/Chest: Present: Clear to Auscultation, Good Air Exchange. No: Respiratory Distress, Accessory Muscle Use Cardiovascular: Present: Regular Rate and Rhythm, Normal S1, S2. No: Murmurs Abdomen: No: Tenderness, Distention, Peritoneal Signs Genitourinary Male: Present: Other (1 cm induration and fluctuant, located inferior to right testicle.) Upper Extremity: Present: Normal Inspection. No: Cyanosis, Edema Lower Extremity: Present: Normal Inspection. No: Edema Neurological: Present: GCS=15, CN II-XII Intact, Speech Normal Skin: Present: Warm, Dry, Normal Color. No: Rashes Psychiatric: Present: Alert, Oriented x 3, Normal Insight, Normal Concentration Medical Decision Making ED Course and Treatment: 02/02/19 13:32 Impression: 78 year old male with testicular pain. Physical exam shows 1 cm induration and fluctuant, located to inferior to right testicle. Plan: -- Lidocaine 1% -- I&D -- Reassess and disposition Prior Visits: Notes and results from previous visits were reviewed. Patient was last seen in the emergency department on 10/12/2018 for right buttocks pain, radiating into the groin. Patient was discharged home. Progress Notes: EKG: Ordered, reviewed, and independently interpreted the EKG. Rate : 74 BPM Rhythm : NSR Interpretation : No ST-segment elevations or depressions, no T-wave inversions, normal intervals. Comparison : No previous EKG for comparison. 02/02/19 13:39 Procedure: Incision & Drainage Performed by the emergency provider Indication: Abscess Location: Inferior to right testicle Preparation: The area was prepped and draped in the usual sterile fashion and was cleansed with . Local infiltration of Lidocaine 1% with Epi was used for anesthesia. Procedure: The most fluctuant portion of the abscess was incised with a #11 scalpel. Approximately mL of was obtained. The abscess was packed. A dressing was applied by the RN. Post-Procedure: On exam the abscess is notably less fluctuant. The patient tolerated the procedure well, and there were no complications. Cultured: {YES / NO} 02/02/19 15:01 in er, abcess noted just inferior to right testicle. i and d performed. packing placed. 2 day return for wound check, packing removal. - Medication Orders Current Medication Orders: Discontinued Medications Lidocaine HCl (Lidocaine 1% (20ml)) 5 ml IJ STAT STA Stop: 02/02/19 13:25 - Scribe Statement The provider has reviewed the documentation as recorded by the Brenda Lawson Provider Scribe Attestation: All medical record entries made by the Scribe were at my direction and personally dictated by me. I have reviewed the chart and agree that the record accurately reflects my personal performance of the history, physical exam, medical decision making, and the department course for this patient. I have also personally directed, reviewed, and agree with the discharge instructions and disposition. Disposition/Present on Arrival - Present on Arrival Any Indicators Present on Arrival: No History of DVT/PE: No History of Uncontrolled Diabetes: Yes Urinary Catheter: No History of Decub. Ulcer: No History Surgical Site Infection Following: None - Disposition Have Diagnosis and Disposition been Completed?: Yes Diagnosis: Abscess Disposition: HOME/ ROUTINE Disposition Time: 14:00 Condition: STABLE Discharge Instructions (ExitCare): Skin Abscess, Abscess Incision and Drainage (DC) Additional Instructions: return to er in 2 days for recheck. return immediately for worsening. Prescriptions: Sulfamethoxazole/Trimethoprim [Bactrim DS 800 mg-160 mg] 1 tab PO BID #14 tab Referrals: Abdirahman Golden MD [Staff Provider] - Follow up with primary Forms: [employer] (Urdu)
[2019-02-02] MEDS ORDERED: Tmp-Smz 800 mg-160 mg DS Tab PO STA (13:41)
[2019-02-02 14:33] VITALS: BP 128/69; PULSE 80
--- NOTE | 2019-02-02 18:39 | CARD ---
APPROVED REPORT Date of service: 02/02/2019 EKG Measurement Heart [id number] <Conclusion> Normal sinus rhythm Normal ECG
== END 2019-02-02 14:32 | disposition home or self-care (01) ==
LOC: ED 12:50
DX: N45.4 Abscess of epididymis or testis (principal); I10 Essential (primary) hypertension; Z87.891 Personal history of nicotine dependence

== ENCOUNTER 2019-02-05 10:38 | Emergency (ER) | payer MEDICARE, OTHER ==
[2019-02-05 10:58] VITALS: BMI 30.8
--- NOTE | 2019-02-05 11:16 | ED PDOC ---
Arrival/HPI - General Chief Complaint: Medical Clearance Time Seen by Provider: 02/05/19 11:07 Historian: Patient - History of Present Illness Narrative History of Present Illness (Text): 02/05/19 11:14 Patient is a 78 year old male whose past medical history includes hernia, abscess, s/p I&D, hypertension, and diabetes mellitus type 2, who presents to the ED for wound reevaluation s/p I&D. Patient previously presented to the ED on 02/02/19 complaining of right testicular pain. An abscess was appreciated inferior to right testicle and underwent an I&D. Patient now presents to the ED per his physician's instruction for follow-up on I&D laceration site. He denies any fever or pain to the area. Patient denies fevers, chills, cough, shortness of breath, chest pain, dyspnea on exertion, abdominal pain, nausea, vomiting, diarrhea, back pain, neck pain, headache, dizziness, or any other complaint. Time/Duration: < week Symptom Course: Improving Context: Home Past Medical History - Provider Review Nursing Documentation Reviewed: Yes - Past History Past History: Non-Contributing - Infectious Disease Hx of Infectious Diseases: None - Tetanus Immunization Tetanus Immunization: Unknown - Cardiac Hx Cardiac Disorders: Yes Hx Hypertension: Yes - Pulmonary Hx Respiratory Disorders: No - Neurological Hx Neurological Disorder: No - HEENT Hx HEENT Disorder: Yes Hx Cataracts: Yes (leanna sx) - Renal Hx Renal Disorder: Yes Hx Kidney Stones: Yes - Endocrine/Metabolic Hx Endocrine Disorders: Yes Hx Diabetes Mellitus Type 2: Yes - Hematological/Oncological Hx Blood Disorders: No - Integumentary Hx Dermatological Disorder: No - Musculoskeletal/Rheumatological Hx Musculoskeletal Disorders: No Hx Falls: No - Gastrointestinal Hx Gastrointestinal Disorders: Yes Hx Gastroesophageal Reflux: Yes - Genitourinary/Gynecological Hx Genitourinary Disorders: Yes Hx Prostate Problems: Yes - Psychiatric Hx Psychophysiologic Disorder: No Hx Depression: No Hx Emotional Abuse: No Hx Physical Abuse: No Hx Substance Use: No - Surgical History Hx Cardiac Catheterization: Yes Hx Coronary Stent: Yes (x3) - Anesthesia Hx Anesthesia: Yes Hx Anesthesia Reactions: No Hx Malignant Hyperthermia: No - Suicidal Assessment Feels Threatened In Home Enviroment: No Family/Social History - Physician Review Nursing Documentation Reviewed: Yes Family/Social History: No Known Family HX Smoking Status: Former Smoker Hx Alcohol Use: No Hx Substance Use: No Hx Substance Use Treatment: No Allergies/Home Meds Allergies/Adverse Reactions: Allergies No Known Allergies Allergy (Verified 02/02/19 13:01) Home Medications: Home Meds Medication Instructions Recorded Confirmed Metoprolol Succinate 25 mg PO DAILY 01/06/14 02/02/19 Mirtazapine [Remeron] 15 mg PO HS 02/13/16 02/02/19 Linaclotide [Linzess] 145 mcg PO DAILY 09/20/16 02/02/19 Saxagliptin HCl [Onglyza] 5 mg PO DAILY 03/16/18 02/02/19 Silodosin [Rapaflo] 8 mg PO DAILY 03/16/18 02/02/19 Sertraline HCl [Zoloft] 1 tab PO DAILY 02/02/19 02/02/19 Review of Systems - Physician Review All systems were reviewed & negative as marked: Yes - Review of Systems Constitutional: absent: Fevers, Night Sweats Respiratory: absent: SOB, Cough Cardiovascular: absent: Chest Pain, [place] Gastrointestinal: absent: Abdominal Pain, Constipation, Diarrhea, Nausea, Vomiting Musculoskeletal: absent: Back Pain, Neck Pain Neurological: absent: Headache, Dizziness Physical Exam Vital Signs Reviewed: Yes Temperature: Afebrile Blood Pressure: Normal Pulse: Regular Respiratory Rate: Normal Appearance: Positive for: Well-Appearing Mental Status: Positive for: Alert and Oriented X 3 - Systems Exam Head: Present: Atraumatic, Normocephalic Pupils: Present: PERRL Extroacular Muscles: Present: EOMI Conjunctiva: Present: Normal Mouth: Present: Moist Mucous Membranes Neck: Present: Normal Range of Motion Cardiovascular: Present: Regular Rate and Rhythm Abdomen: No: Tenderness, Distention, Peritoneal Signs Back: Present: Normal Inspection Upper Extremity: Present: Normal Inspection. No: Cyanosis, Edema Lower Extremity: Present: Normal Inspection. No: Edema Neurological: Present: GCS=15, CN II-XII Intact, Speech Normal Skin: Present: Warm, Dry, Normal Color, Laceration (0.5cm laceration inferior to right testicle from previous I&D. No drainage or evidence of cellulitis. No packing material noted.). No: Rashes Psychiatric: Present: Alert, Oriented x 3, Normal Insight, Normal Concentration Medical Decision Making ED Course and Treatment: 05/01/19 11:16 Impression: 78 year old male who presents to the ED for wound check s/p I&D from 02/02/19 Plan: -- No need for wound repacking at this time. No signs of infection noted on exam. Prior Visits: Notes and results from previous visits were reviewed. Patient was last seen in the emergency department on 02/02/19 for testicular pain and an abscess inferior to right testicle was appreciated. Abscess was I&D and packed. Progress Notes: 02/05/19 11:25 No need for wound repacking or dressing at this time. - Scribe Statement The provider has reviewed the documentation as recorded by the Scribe Riley Posey Provider Scribe Attestation: All medical record entries made by the Scribe were at my direction and personally dictated by me. I have reviewed the chart and agree that the record accurately reflects my personal performance of the history, physical exam, medical decision making, and the department course for this patient. I have also personally directed, reviewed, and agree with the discharge instructions and disposition. Disposition/Present on Arrival - Present on Arrival Any Indicators Present on Arrival: No History of DVT/PE: No History of Uncontrolled Diabetes: Yes Urinary Catheter: No History of Decub. Ulcer: No History Surgical Site Infection Following: None - Disposition Have Diagnosis and Disposition been Completed?: Yes Diagnosis: Wound check, abscess Disposition: HOME/ ROUTINE Disposition Time: 11:39 Condition: GOOD Discharge Instructions (ExitCare): Wound Incision and Drainage (DC) Additional Instructions: CHARLOTTE JOEL, thank you for letting us take care of you today. Your provider was Letty Mayers MD and you were treated for medical clearance ( check wounded). The emergency medical care you received today was directed at your acute symptoms. If you were prescribed any medication, please fill it and take as directed. It may take several days for your symptoms to resolve. Return to the Emergency Department if your symptoms worsen, do not improve, or if you have any other problems. Please contact your doctor or call one of the physicians/clinics you have been referred to that are listed on the Patient Visit Information form that is included in your discharge packet. Bring any paperwork you were given at discharge with you along with any medications you are taking to your follow up visit. Our treatment cannot replace ongoing medical care by a primary care provider outside of the emergency department. Thank you for allowing the [facility] team to be part of your care today. If you had an X-Ray or CT scan: A Radiologist will review the ED reading if any change in treatment is needed we will contact you. If you had a blood, urine, or wound culture: It will take several days for the results, if any change in treatment is needed we will contact you. If you had an STI test: It will take 48 hours for the results. Please call after 1 week if you have not heard back. Forms: [employer] (Panamanian)
[2019-02-05 11:20] VITALS: BP 121/81; PULSE 73; RESP 16; O2SAT 97
== END 2019-02-05 11:39 | disposition home or self-care (01) ==
LOC: ED 10:38
DX: Z51.89 Encounter for other specified aftercare (principal)